=== PATIENT | female | born 1935 | race Caucasian/White ===

== ENCOUNTER 2017-01-03 14:15 | Inpatient (IN) | payer MEDICARE ==
[2017-01-03 14:39] LABS: BASO # 0.1 K/uL (0.0-0.2); BASO % 0.7 % (0.0-2.0); EOS # 0.1 K/uL (0.0-0.7); EOS % 0.6 % (0.0-4.0); HEMATOCRIT 42.8 % (34.0-47.0); LYMPH % 17.3 % (20.0-40.0); MEAN CELL VOLUME 92.2 fL (81.0-99.0); MEAN CORPUSCULAR HEMOGLOBIN 30.4 pg (27.0-31.0); MEAN PLATELET VOLUME 10.4 fL (7.2-11.7); MONO # 0.6 K/uL (0.0-0.8); MONO % 5.1 % (0.0-10.0); RED CELL DISTRIBUTION WIDTH 12.9 % (11.5-14.5); WHITE BLOOD COUNT 11.4 K/uL (4.8-10.8)
[2017-01-03 14:48] LABS: ABG ALLEN TEST UNABLE; ABG MECHANICAL RATE 16; ARTERIAL BLOOD GAS MODE A/C; ATERIAL BLOOD GAS PEEP 5; DRAW SITE LR
--- NOTE | 2017-01-03 14:58 | C.PDOC ---
History Of Present Illness 81 year old female was brought to the ED by EMS from retirement for evaluation of increased shortness of breath and respiratory arrest. History per EMS, patient with a history of Dementia was brought in needing immediate evaluation. Patient was found to have a Pulse Ox. of 56% on room air and intubated in the field. Initial evaluation performed by me. As per nurse's chart , patient is DNR but not DNI. Time Seen by Provider: 01/03/17 14:23 Chief Complaint (Nursing): Respiratory Distress History Per: EMS History/Exam Limitations: clinical condition Current Symptoms Are (Timing): Still Present Recent travel outside of the [place]: No Additional History Per: [facility] Past Medical History Reviewed: Historical Data, Nursing Documentation, Vital Signs Vital Signs: Last Vital Signs Temp 98.7 F 01/05/17 04:00 Pulse 82 01/05/17 07:00 Resp 16 01/05/17 07:00 BP 169/79 H 01/05/17 06:58 Pulse Ox 100 01/05/17 07:00 - Medical History PMH: Alzheimer's Disease, Arthritis, Asthma, COPD, Dementia, Gall Bladder Disease, HTN, Hypothyroidism, Pulmonary Embolism, Seizures (LAST EPISODE 2 MONTHS AGO) Surgical History: Cholecystectomy (15 yrs ago) - Revolucionadolabs Procedures PERCUTANEOUS [ENDOSCOPIC] GASTROSTOMY [PEG] (07/08/14) Family History: States: Unknown Family Hx - Social History Hx Tobacco Use: No Hx Alcohol Use: No Hx Substance Use: No - Immunization History Hx Tetanus Toxoid Vaccination: No Hx Influenza Vaccination: No Hx Pneumococcal Vaccination: No Review Of Systems Review Of Systems: ROS cannot be obtained secondary to pt's inabilty to answer questions. (patient's clinical condition) Physical Exam - Physical Exam Appears: Toxic, Other (In respiratory distress ) Skin: Warm, Dry, No Rash Head: Atraumatic, Normacephalic, No Tenderness Eye(s): bilateral: Normal Inspection Oral Mucosa: Moist Neck: Supple Chest: Symmetrical, No Deformity Cardiovascular: No Murmur, Other (sinus tachycardic ) Respiratory: No Rales, No Rhonchi, No Wheezing, Other (breath sounds bilaterally with bag-valve mask ) Gastrointestinal/Abdominal: Soft, No Distention, No Guarding, Other (G tube present ) Neurological/Psych: Other (patient is moving all four extremities ) ED Course And Treatment - Laboratory Results Result Diagrams: 01/05/17 06:15 01/05/17 06:15 ECG: Interpreted By Me, Viewed By Me ECG Rhythm: Sinus Tachycardia Interpretation Of ECG: Poor r-wave progression. Normal axis, normal intervals. Non-specific t-wave changes. Rate From EC O2 Sat by Pulse Oximetry: 99 (RA) Pulse Ox Interpretation: Normal - Other Rad CXR X-Ray: Viewed By Me, Read By Radiologist Interpretation: FINDINGS: The endotracheal tube terminates approximately 11 mm above the level the brien. LUNGS: Patchy opacity at the left lung base, possibly atelectasis or pneumonia. Right hilar prominence. Biapical pleural thickening. PLEURA: No significant pleural effusion identified. No definite pneumothorax . CARDIOVASCULAR: Heart size appears top normal. Atherosclerotic calcifications of the aortic knob. OSSEOUS STRUCTURES: Degenerative changes of the spine. VISUALIZED UPPER ABDOMEN: Unremarkable. OTHER FINDINGS: None. IMPRESSION: The endotracheal tube terminates approximately 11 mm above the level the brien. Suggest withdrawing endotracheal tube approximately 2 cm. Patchy opacity at the left lung base, possibly atelectasis or pneumonia. Right hilar prominence. Biapical pleural thickening. Findings discussed with Dr. Lowery on 01/03/17 at 3:50 p.m.. Progress Note: Head CT, EKG, CXR, blood work, and labs were ordered. Patient was given Ativan. - Physician Consult Information Time Consulting Physician Contacted: 15:10 Physician Contacted: Stephane Ferrer Critical Care Time - Critical Care Note Total Time (in mins): 60 Documented critical care: time excludes all time spent performing seperately billable procedures. Medical Decision Making Medical Decision Making: DNR is not signed therefore is not valid. 15:20 case discussed with patient's PMD Dr. Drake who agrees to admission to his service. 16:10 Radiology notified me, patient's intubation tube was too far down. ETT tube pulled back 2 cm. Disposition Discussed With : Jolene Drake Doctor Will See Patient In The: Hospital - Disposition Disposition: HOSPITALIZED Disposition Time: 15:40 Condition: CRITICAL - Clinical Impression Clinical Impression: Respiratory arrest - Scribe Statement The provider has reviewed the documentation as recorded by the Scribe Rosaline Izaguirre All medical record entries made by the Scribe were at my direction and personally dictated by me. I have reviewed the chart and agree that the record accurately reflects my personal performance of the history, physical exam, medical decision making, and the department course for this patient. I have also personally directed, reviewed, and agree with the discharge instructions and disposition.
[2017-01-03 15:20] LABS: RBC URINE 5 /hpf (0-3); URINE BACTERIA RARE (<OCC); URINE BILIRUBIN NEGATIVE (NEGATIVE); URINE BLOOD NEGATIVE (NEGATIVE); URINE COLOR Yellow (YELLOW); URINE GLUCOSE (UA) 1+ mg/dL (Normal); URINE KETONE NEGATIVE (NEGATIVE); URINE LEUKOCYTE ESTERASE NEG Leu/uL (Negative); URINE PROTEIN 2+ mg/dL (NEGATIVE); URINE UROBILINOGEN NORMAL mg/dL (0.2-1.0); WBC URINE 7 /hpf (0-5)
[2017-01-03 15:46] LABS: THYROID STIMULATING HORMONE 7.03 mIU/L (0.46-4.68)
[2017-01-03] MEDS ORDERED: Cefepime 1 GM in Sodium Chloride 0.9% 50 ML IVPB ONE (15:50)
--- NOTE | 2017-01-03 15:53 | RAD ---
HISTORY: SOB COMPARISON: Chest x-ray performed 01/11/14 TECHNIQUE: Chest, one view. FINDINGS: The endotracheal tube terminates approximately 11 mm above the level the brien. LUNGS: Patchy opacity at the left lung base, possibly atelectasis or pneumonia. Right hilar prominence. Biapical pleural thickening. PLEURA: No significant pleural effusion identified. No definite pneumothorax . CARDIOVASCULAR: Heart size appears top normal. Atherosclerotic calcifications of the aortic knob. OSSEOUS STRUCTURES: Degenerative changes of the spine. VISUALIZED UPPER ABDOMEN: Unremarkable. OTHER FINDINGS: None. IMPRESSION: The endotracheal tube terminates approximately 11 mm above the level the brien. Suggest withdrawing endotracheal tube approximately 2 cm. Patchy opacity at the left lung base, possibly atelectasis or pneumonia. Right hilar prominence. Biapical pleural thickening. Findings discussed with Dr. Lowery on 01/03/17 at 3:50 p.m..
[2017-01-03 16:13] LABS: ALKALINE PHOSPHATASE 73 U/L (38-126); ALT/SGPT 33 U/L (9-52); AST/SGOT 38 U/L (14-36); BILIRUBIN,TOTAL 0.7 mg/dL (0.2-1.3); BLOOD UREA NITROGEN 22 mg/dL (7-17); CALCIUM 8.3 mg/dl (8.6-10.4); CARBON DIOXIDE 27 mmol/L (22-30); CHLORIDE 100 mmol/L (98-107); GFR AFRICAN-AMERICAN > 60; GLUCOSE,RANDOM 113 mg/dL (65-105); SODIUM 137 mmol/L (132-148); TOTAL PROTEIN 7.3 g/dL (6.3-8.3)
[2017-01-03] MEDS ORDERED: Cefepime IV 1 gm in Dextrose 1 GM/50 ML BAG IVPB ONE (16:15)
--- NOTE | 2017-01-03 16:39 | CP.PCM.CON ---
<Charlotte Lyon - Last Filed: 01/03/17 17:49> History of Present Illness - History of Present Illness History of Present Illness: Patient is an 81 year old female with PMHx of Alzheimer's Dementia, HTN, stroke , hypothyroidism, and possible seizures who was at her detention when she started to choke. Patient was suctioned, but became hypoxic and brought to ED. Patient intubated. Son is at bedside who provides the history. At baseline, patient is nonverbal and wheelchair bound. Patient cannot follow commands. Patient has been living in a detention for the past 8 years and son believes she has been having more trouble with breathing recently. PMHx: Alzheimer's Dementia, HTN, stroke (unknown year because found incidentally as an old infarct on imaging in 2011), hypothyroidism, possible seizure history Surghx: cholecystectomy (2001), peg tube (2013) Social: 8 years ago moved into a detention, currently at [place] ([phone]), no history of tobacco/alcohol/drugs Famhx: mom- throat CA, sister- stomach CA Review of Systems - Review of Systems Systems not reviewed;Unavailable: Intubated Past Patient History - Past Medical History & Family History Past Medical History?: Yes - Past Social History Smoking Status: Never Smoked - CARDIAC Hx Hypertension: Yes - PULMONARY Hx Asthma: Yes Hx Chronic Obstructive Pulmonary Disease (COPD): Yes Hx Pulmonary Embolism: Yes - NEUROLOGICAL Hx Alzheimer's Disease: Yes Hx Dementia: Yes Hx Seizures: Yes (LAST EPISODE 2 MONTHS AGO) - HEENT Hx HEENT Problems: Yes Hx Cataracts: Yes Hx Glaucoma: Yes - RENAL Hx Chronic Kidney Disease: No - ENDOCRINE/METABOLIC Hx Hypothyroidism: Yes - HEMATOLOGICAL/ONCOLOGICAL Hx Blood Disorders: No - INTEGUMENTARY Hx Dermatological Problems: No - MUSCULOSKELETAL/RHEUMATOLOGICAL Hx Arthritis: Yes - GASTROINTESTINAL Hx Gall Bladder Disease: Yes - GENITOURINARY/GYNECOLOGICAL Hx Genitourinary Disorders: Yes Hx Incontinence: Yes - PSYCHIATRIC Hx Substance Use: No - SURGICAL HISTORY Hx Cholecystectomy: Yes (15 yrs ago) - ANESTHESIA Hx Anesthesia: Yes Hx Anesthesia Reactions: No Hx Malignant Hyperthermia: No Meds Allergies/Adverse Reactions: Allergies Allergy/AdvReac Type Severity Reaction Status Date / Time No Known Allergies Allergy Verified 01/03/17 14:38 - Medications Medications: Current Medications Cefepime HCl (Maxipime Iv 1 Gm Premix) 1 gm in 50 mls @ 100 mls/hr IVPB ONCE ONE Stop: 01/03/17 16:44 Physical Exam - Constitutional Appears: Older Than Stated Age, Chronically Ill - Head Exam Head Exam: ATRAUMATIC, NORMAL INSPECTION Additional comments: flaking scalp - Respiratory Exam Respiratory Exam: Decreased Breath Sounds, Rhonchi Additional comments: intubated - Cardiovascular Exam Cardiovascular Exam: Tachycardia, +S1, +S2 - GI/Abdominal Exam GI & Abdominal Exam: Soft Additional comments: PEG tube in place with C/D/I dressing - Extremities Exam Extremities exam: Positive for: normal inspection. Negative for: pedal edema - Neurological Exam Neurological exam: Altered - Skin Skin Exam: Intact, Normal Color, Warm Results - Vital Signs Recent Vital Signs: Last Vital Signs Temp 98.3 F 01/03/17 14:27 Pulse 94 H 01/03/17 15:15 Resp 20 01/03/17 15:15 BP 110/80 01/03/17 15:15 Pulse Ox 99 01/03/17 15:56 - Labs Result Diagrams: 01/03/17 14:34 01/03/17 14:34 Labs: Laboratory Results - last 24 hr 01/03/17 01/03/17 01/03/17 14:34 14:34 14:34 WBC 11.4 H RBC 4.65 Hgb 14.1 Hct 42.8 MCV 92.2 MCH 30.4 MCHC 33.0 RDW 12.9 Plt Count 238 MPV 10.4 Neut % (Auto) 76.3 H Lymph % (Auto) 17.3 L [place] % (Auto) 5.1 Eos % (Auto) 0.6 Baso % (Auto) 0.7 Neut # 8.7 H Lymph # 2.0 [place] # 0.6 Eos # 0.1 Baso # 0.1 PT 11.6 INR 1.0 APTT 24 Puncture Site pCO2 pO2 HCO3 ABG pH ABG Total CO2 ABG O2 Saturation ABG Base Excess [place] Test ABG Potassium A-a O2 Difference Respiratory Index Glucose Lactate Vent Mode Mechanical Rate FiO2 Tidal Volume PEEP Sodium 137 Potassium 4.0 Chloride 100 Carbon Dioxide 27 Anion Gap 14 BUN 22 H Creatinine 0.5 L Est GFR ( Amer) > 60 Est GFR (Non-Af Amer) > 60 Random Glucose 113 H Calcium 8.3 L Magnesium 2.0 Total Bilirubin 0.7 AST 38 H ALT 33 Alkaline Phosphatase 73 Troponin I < 0.0120 NT-Pro-B Natriuret Pep 350 Total Protein 7.3 Albumin 3.6 Globulin 3.7 Albumin/Globulin Ratio 1.0 TSH 3rd Generation 7.03 H Arterial Blood Potassium Urine Color Urine Clarity Urine pH Ur Specific [place] Urine Protein Urine Glucose (UA) Urine Ketones Urine Blood Urine Nitrate Urine Bilirubin Urine Urobilinogen Ur Leukocyte Esterase Urine WBC (Auto) Urine RBC (Auto) Ur Squamous Epith Cells Urine Bacteria 01/03/17 01/03/17 14:45 14:58 WBC RBC Hgb Hct MCV MCH MCHC RDW Plt Count MPV Neut % (Auto) Lymph % (Auto) [place] % (Auto) Eos % (Auto) Baso % (Auto) Neut # Lymph # [place] # Eos # Baso # PT INR APTT Puncture Site Lr pCO2 39 pO2 427 H HCO3 27.3 ABG pH 7.45 ABG Total CO2 28.3 H ABG O2 Saturation 100.1 H ABG Base Excess 3.0 [place] Test Unable ABG Potassium 3.5 L A-a O2 Difference 237.0 Respiratory Index 0.6 Glucose 121 H Lactate 2.5 H Vent Mode A/c Mechanical Rate 16 FiO2 100.0 Tidal Volume 450 PEEP 5 Sodium 138.0 Potassium Chloride 112.0 H Carbon Dioxide Anion Gap BUN Creatinine Est GFR ( Amer) Est GFR (Non-Af Amer) Random Glucose Calcium Magnesium Total Bilirubin AST ALT Alkaline Phosphatase Troponin I NT-Pro-B Natriuret Pep Total Protein Albumin Globulin Albumin/Globulin Ratio TSH 3rd Generation Arterial Blood Potassium 3.5 L Urine Color Yellow Urine Clarity Hazy Urine pH 5.0 Ur Specific [place] 1.020 Urine Protein 2+ H Urine Glucose (UA) 1+ Urine Ketones Negative Urine Blood Negative Urine Nitrate Negative Urine Bilirubin Negative Urine Urobilinogen Normal Ur Leukocyte Esterase Neg Urine WBC (Auto) 7 H Urine RBC (Auto) 5 H Ur Squamous Epith Cells 1 Urine Bacteria Rare Assessment & Plan - Assessment and Plan (Free Text) Assessment: Patient is an 81 year old female with PMHx of Alzheimer's Dementia, HTN, stroke , hypothyroidism admitted for respiratory failure, intubated, after an episode of choking in the detention. Neuro: hx Alzheimer's Dementia, possible seizure hx -nonverbal and does not follow commands at baseline -continue home medication Keppra 500 mg po BID Pulm: intubated, secondary to respiratory failure, possibly 2/2 aspiration pneumonia cxray (01/03): patchy opacity at the left lung base, possibly atelectasis or pneumonia. Right hilar prominence. Biapical pleural thickening. Cardio: hx HTN -monitor BP GI: peg tube -start feedings tomorrow Endo: hx hypothyroidism -continue home med: Synthroid 100mcg daily -TSH: 7.03 -f/u free T4 ID: -WBC: 11.4 -Lactate (01/03): 2.5 -Cefepime 1 gm given in ED -Cefepime 1gm q12h -Flagyl 500 q8h -1 dose Vanco 1,000 mg -f/u blood, urine cultures Prophylaxis: -GI: Pepcid 20 mg ivp daily -DVT: SCDs, Heparin 5000 u sc q12h -palliative care consulted, help appreciated <Stephane Ferrer - Last Filed: 01/03/17 18:05> Meds - Medications Medications: Current Medications Famotidine (Pepcid) 20 mg IVP DAILY [facility] Heparin Sodium (Porcine) (Heparin) 5,000 units SC Q12 [facility] Vancomycin/Sodium Chloride (Vancomycin 1 Gm/Ns 200 Ml) 1 gm in 200 mls @ 133.333 mls/hr IVPB ONCE ONE Stop: 01/03/17 19:59 Last Admin: 01/03/17 17:51 Dose: 133.333 mls/hr Metronidazole (Flagyl) 500 mg in 100 mls @ 100 mls/hr IVPB Q8H [facility] Last Admin: 01/03/17 17:46 Dose: 100 mls/hr Cefepime HCl (Maxipime Iv 1 Gm Premix) 1 gm in 50 mls @ 100 mls/hr IVPB Q12H [facility] Levetiracetam (Keppra) 500 mg PO BID [facility] Levothyroxine Sodium (Synthroid) 100 mcg PO DAILY@0630 [facility] Results - Vital Signs Recent Vital Signs: Last Vital Signs Temp 98.7 F 01/03/17 17:25 Pulse 102 H 01/03/17 17:50 Resp 16 01/03/17 17:50 BP 120/79 01/03/17 17:41 Pulse Ox 95 01/03/17 17:50 - Labs Result Diagrams: 01/03/17 14:34 01/03/17 14:34 Labs: Laboratory Results - last 24 hr 01/03/17 01/03/17 01/03/17 14:34 14:34 14:34 WBC 11.4 H RBC 4.65 Hgb 14.1 Hct 42.8 MCV 92.2 MCH 30.4 MCHC 33.0 RDW 12.9 Plt Count 238 MPV 10.4 Neut % (Auto) 76.3 H Lymph % (Auto) 17.3 L [place] % (Auto) 5.1 Eos % (Auto) 0.6 Baso % (Auto) 0.7 Neut # 8.7 H Lymph # 2.0 [place] # 0.6 Eos # 0.1 Baso # 0.1 PT 11.6 INR 1.0 APTT 24 Puncture Site pCO2 pO2 HCO3 ABG pH ABG Total CO2 ABG O2 Saturation ABG Base Excess [place] Test ABG Potassium A-a O2 Difference Respiratory Index Glucose Lactate Vent Mode Mechanical Rate FiO2 Tidal Volume PEEP Sodium 137 Potassium 4.0 Chloride 100 Carbon Dioxide 27 Anion Gap 14 BUN 22 H Creatinine 0.5 L Est GFR ( Amer) > 60 Est GFR (Non-Af Amer) > 60 Random Glucose 113 H Calcium 8.3 L Magnesium 2.0 Total Bilirubin 0.7 AST 38 H ALT 33 Alkaline Phosphatase 73 Troponin I < 0.0120 NT-Pro-B Natriuret Pep 350 Total Protein 7.3 Albumin 3.6 Globulin 3.7 Albumin/Globulin Ratio 1.0 TSH 3rd Generation 7.03 H Arterial Blood Potassium Urine Color Urine Clarity Urine pH Ur Specific [place] Urine Protein Urine Glucose (UA) Urine Ketones Urine Blood Urine Nitrate Urine Bilirubin Urine Urobilinogen Ur Leukocyte Esterase Urine WBC (Auto) Urine RBC (Auto) Ur Squamous Epith Cells Urine Bacteria 01/03/17 01/03/17 14:45 14:58 WBC RBC Hgb Hct MCV MCH MCHC RDW Plt Count MPV Neut % (Auto) Lymph % (Auto) [place] % (Auto) Eos % (Auto) Baso % (Auto) Neut # Lymph # [place] # Eos # Baso # PT INR APTT Puncture Site Lr pCO2 39 pO2 427 H HCO3 27.3 ABG pH 7.45 ABG Total CO2 28.3 H ABG O2 Saturation 100.1 H ABG Base Excess 3.0 [place] Test Unable ABG Potassium 3.5 L A-a O2 Difference 237.0 Respiratory Index 0.6 Glucose 121 H Lactate 2.5 H Vent Mode A/c Mechanical Rate 16 FiO2 100.0 Tidal Volume 450 PEEP 5 Sodium 138.0 Potassium Chloride 112.0 H Carbon Dioxide Anion Gap BUN Creatinine Est GFR ( Amer) Est GFR (Non-Af Amer) Random Glucose Calcium Magnesium Total Bilirubin AST ALT Alkaline Phosphatase Troponin I NT-Pro-B Natriuret Pep Total Protein Albumin Globulin Albumin/Globulin Ratio TSH 3rd Generation Arterial Blood Potassium 3.5 L Urine Color Yellow Urine Clarity Hazy Urine pH 5.0 Ur Specific [place] 1.020 Urine Protein 2+ H Urine Glucose (UA) 1+ Urine Ketones Negative Urine Blood Negative Urine Nitrate Negative Urine Bilirubin Negative Urine Urobilinogen Normal Ur Leukocyte Esterase Neg Urine WBC (Auto) 7 H Urine RBC (Auto) 5 H Ur Squamous Epith Cells 1 Urine Bacteria Rare Attending/Attestation - Attestation I have personally seen and examined this patient.: Yes I have fully participated in the care of the patient.: Yes I have reviewed all pertinent clinical information: Yes Notes (Text): 01/03/17 18:04 Patient seen and examined. Case discussed with house staff. 81 year old female transferred from detention after she was intubated for respiratory distress/cyanosis Continue ventilatory support and reduce FiO2 40% Started on IV antibiotics for possible aspiration pneumonia Follow-up culture and sensitivity NGT feeding and continue Keppra case discussed with family
[2017-01-03] MEDS: metroNIDAZOLE IV 500 mg/100 ml 500 MG/100 ML BAG IVPB SCH (17:46)
[2017-01-03] MEDS ORDERED: Vancomycin 1 gm/NS 200 ml 1 GM/200 ML BAG IVPB ONE (18:30)
[2017-01-03] MEDS: levETIRAcetam 100 mg/ml (5ml) Oral Syringe PO SCH (20:12)
[2017-01-04] MEDS: metroNIDAZOLE IV 500 mg/100 ml 500 MG/100 ML BAG IVPB SCH ×3 (01:30→18:29)
--- NOTE | 2017-01-04 02:56 | HP ---
HISTORY OF PRESENT ILLNESS: This is an 81-year-old female who is a half-way resident for many years, was brought to Emergency Room for severe respiratory distress. The patient was intubated in the field and she was brought to Emergency Room where she was started on IV antibiotics as well as had an ICU consultation and admitted to Intensive Care Unit. The patient's chest x-ray showed patchy opacity of the left lung base, possible atelectasis or pneumonia. The patient was sedated at the time of this examination and her 2 sons were at the bedside and no more history was obtainable from the patient due to sedation. ALLERGIES: No KNOWN ALLERGY. PAST MEDICAL HISTORY: Seizure, hypothyroidism, status post CVA, dementia, gastric tube feeding. MEDICATIONS: As per MAR. FAMILY HISTORY: Not known. SOCIAL HISTORY: The patient is a half-way resident, otherwise not known. PHYSICAL EXAMINATION: GENERAL: The patient is sedated on ventilator. VITAL SIGNS: Blood pressure 107/70, temperature 98.4, respiratory rate 12 and pulse 90. HEENT: Pupils equal, reactive to light. Normal-appearing mucosa of the conjunctivae, oropharyngeal and nasal membrane mucosa. NECK: Supple. No JVD. No carotid bruit. No lymph node. No thyromegaly. CHEST AND LUNGS: Bilateral symmetrical expansion. Good air exchange. No rales, no rhonchi. CARDIOVASCULAR SYSTEM: PMI not localized. S1 and S2. No additional sounds. ABDOMEN: Normoactive bowel sounds. No tenderness. No organomegaly. No masses. Right gastric tube is in place. EXTREMITIES: No cyanosis, no clubbing, no edema. CENTRAL NERVOUS SYSTEM: The patient is sedated on ventilator. ASSESSMENT: Respiratory failure, possible pneumonia; hypothyroidism; seizure disorder; gastric tube feeding. PLAN: Continue IV antibiotics that was started by brake lining [employer]isher [employer]. Pulmonary consultation. ICU management and wean off ventilator as tolerated. Currently, the patient is full code. Discussed with the patient's sons at the bedside. Davon MD [place]
[2017-01-04] MEDS: Cefepime IV 1 gm in Dextrose 1 GM/50 ML BAG IVPB SCH ×2 (05:02→17:49)
[2017-01-04 05:31] LABS: ABG ALLEN TEST POS; ABG MECHANICAL RATE 16; ARTERIAL BLOOD GAS MODE PRVC; ATERIAL BLOOD GAS PEEP 5; DRAW SITE RR
[2017-01-04] MEDS: Levothyroxine 100 MCG TAB PO SCH (05:47)
[2017-01-04 06:26] LABS: BASO # 0.1 K/uL (0.0-0.2); BASO % 0.6 % (0.0-2.0); EOS % 0.3 % (0.0-4.0); HEMATOCRIT 41.9 % (34.0-47.0); LYMPH # 2.5 K/uL (1.0-4.3); LYMPH % 27.6 % (20.0-40.0); MEAN CELL VOLUME 90.8 fL (81.0-99.0); MEAN CORPUSCULAR HGB CONC 34.1 g/dL (33.0-37.0); MEAN PLATELET VOLUME 11.3 fL (7.2-11.7); MONO # 0.5 K/uL (0.0-0.8); MONO % 5.5 % (0.0-10.0); RED CELL DISTRIBUTION WIDTH 13.1 % (11.5-14.5); WHITE BLOOD COUNT 9.2 K/uL (4.8-10.8)
[2017-01-04 06:40] LABS: ALB/GLOB RATIO 0.8 (1.0-2.1); ALKALINE PHOSPHATASE 79 U/L (38-126); ALT/SGPT 34 U/L (9-52); AST/SGOT 33 U/L (14-36); BILIRUBIN,TOTAL 0.9 mg/dL (0.2-1.3); BLOOD UREA NITROGEN 15 mg/dL (7-17); CALCIUM 8.7 mg/dl (8.6-10.4); CARBON DIOXIDE 27 mmol/L (22-30); CHLORIDE 100 mmol/L (98-107); GFR AFRICAN-AMERICAN > 60; GLUCOSE,RANDOM 95 mg/dL (65-105); PHOSPHOROUS 1.3 mg/dL (2.5-4.5); POTASSIUM 3.1 mmol/L (3.6-5.2); SODIUM 138 mmol/L (132-148)
[2017-01-04] MEDS ORDERED: Potassium Phosphate 15 MMOLE in Dextrose 5% In Water 250 ML IVPB ONE ×2 (07:06→15:00)
--- NOTE | 2017-01-04 08:54 | RAD ---
HISTORY: intubated COMPARISON: 01/03/2017 FINDINGS: LUNGS: No active pulmonary disease. PLEURA: No significant pleural effusion identified, no pneumothorax apparent. CARDIOVASCULAR: Endotracheal tube positioned approximately 3.2 cm above the tracheal brien. OSSEOUS STRUCTURES: No significant abnormalities. VISUALIZED UPPER ABDOMEN: Normal. OTHER FINDINGS: None. IMPRESSION: No infiltrate. Endotracheal tube appropriately positioned.
[2017-01-04] MEDS: levETIRAcetam 100 mg/ml (5ml) Oral Syringe PO SCH ×2 (10:35→18:14)
--- NOTE | 2017-01-04 14:02 | CP.PCM.CON ---
History of Present Illness - History of Present Illness History of Present Illness: Palliative consult requested by Camron PEREIRA for Code status and goals of care discussion Patient is a 81 yo [place] in respiratory distress and was intubated on the field. The O2Sat wasfound to be in 50s on the scene. Upon admission to the hospital patient was diagnosed with pneumonia and Tygacil and Maxipine IV initiated. PMH: Alzheimer's, dementia, COPD, asthma, HTN, PE, seizures, last was 2 months ago Soc. Hx: , [place] resident X 8 years , bedridden, has three sons involved in care FamHx: from respiratory failure Review of Systems - Review of Systems Review of Systems: ROS obtained from nursing, no overnight events, remained afebrile Past Patient History - Past Medical History & Family History Past Medical History?: Yes - Past Social History Smoking Status: Never Smoked - CARDIAC Hx Hypertension: Yes - PULMONARY Hx Asthma: Yes Hx Chronic Obstructive Pulmonary Disease (COPD): Yes Hx Pulmonary Embolism: Yes - NEUROLOGICAL Hx Alzheimer's Disease: Yes Hx Dementia: Yes Hx Seizures: Yes (LAST EPISODE 2 MONTHS AGO) - HEENT Hx HEENT Problems: Yes Hx Cataracts: Yes Hx Glaucoma: Yes - RENAL Hx Chronic Kidney Disease: No - ENDOCRINE/METABOLIC Hx Hypothyroidism: Yes - HEMATOLOGICAL/ONCOLOGICAL Hx Blood Disorders: No - INTEGUMENTARY Hx Dermatological Problems: No - MUSCULOSKELETAL/RHEUMATOLOGICAL Hx Arthritis: Yes - GASTROINTESTINAL Hx Gall Bladder Disease: Yes - GENITOURINARY/GYNECOLOGICAL Hx Genitourinary Disorders: Yes Hx Incontinence: Yes - PSYCHIATRIC Hx Substance Use: No - SURGICAL HISTORY Hx Cholecystectomy: Yes (15 yrs ago) - ANESTHESIA Hx Anesthesia: Yes Hx Anesthesia Reactions: No Hx Malignant Hyperthermia: No Meds Allergies/Adverse Reactions: Allergies Allergy/AdvReac Type Severity Reaction Status Date / Time No Known Allergies Allergy Verified 01/03/17 14:38 - Medications Medications: Current Medications Famotidine (Pepcid) 20 mg IVP DAILY [facility] Last Admin: 01/04/17 10:35 Dose: 20 mg Heparin Sodium (Porcine) (Heparin) 5,000 units SC Q12 ODETTE Last Admin: 01/04/17 10:35 Dose: 5,000 units Metronidazole (Flagyl) 500 mg in 100 mls @ 100 mls/hr IVPB Q8H [facility] Last Admin: 11/15/17 10:35 Dose: 100 mls/hr Cefepime HCl (Maxipime Iv 1 Gm Premix) 1 gm in 50 mls @ 100 mls/hr IVPB Q12H [facility] Last Admin: 01/04/17 05:02 Dose: 100 mls/hr Levetiracetam (Keppra) 500 mg PO BID [facility] Last Admin: 01/04/17 10:35 Dose: 500 mg Levothyroxine Sodium (Synthroid) 100 mcg PO DAILY@0630 [facility] Last Admin: 01/04/17 05:47 Dose: 100 mcg Physical Exam - Constitutional Appears: In Acute Distress, Chronically Ill - Head Exam Head Exam: ATRAUMATIC, NORMAL INSPECTION, NORMOCEPHALIC - Eye Exam Eye Exam: PERRL Pupil Exam: NORMAL ACCOMODATION, PERRL - ENT Exam ENT Exam: Mucous Membranes Dry - Neck Exam Additional comments: ETT - Respiratory Exam Additional comments: On MV - Cardiovascular Exam Cardiovascular Exam: REGULAR RHYTHM - GI/Abdominal Exam GI & Abdominal Exam: Hypoactive Bowel Sounds Additional comments: PEG - Rectal Exam Rectal Exam: Deferred - Extremities Exam Extremities exam: Positive for: normal inspection - Back Exam Back exam: NORMAL INSPECTION - Neurological Exam Neurological exam: Motor Sensory Deficit - Psychiatric Exam Psychiatric exam: Flat Affect - Skin Skin Exam: Normal Color, Warm Results - Vital Signs Recent Vital Signs: Last Vital Signs Temp 97.8 F 01/04/17 08:00 Pulse 82 01/04/17 10:47 Resp 16 01/04/17 10:47 BP 106/75 01/04/17 10:47 Pulse Ox 100 01/04/17 10:47 - Labs Result Diagrams: 01/04/17 06:08 01/04/17 06:08 Labs: Laboratory Results - last 24 hr 01/03/17 01/03/17 01/03/17 14:34 14:34 14:34 WBC 11.4 H RBC 4.65 Hgb 14.1 Hct 42.8 MCV 92.2 MCH 30.4 MCHC 33.0 RDW 12.9 Plt Count 238 MPV 10.4 Neut % (Auto) 76.3 H Lymph % (Auto) 17.3 L [place] % (Auto) 5.1 Eos % (Auto) 0.6 Baso % (Auto) 0.7 Neut # 8.7 H Lymph # 2.0 [place] # 0.6 Eos # 0.1 Baso # 0.1 PT 11.6 INR 1.0 APTT 24 Puncture Site pCO2 pO2 HCO3 ABG pH ABG Total CO2 ABG O2 Saturation ABG Base Excess [place] Test ABG Potassium A-a O2 Difference Respiratory Index Glucose Lactate Vent Mode Mechanical Rate FiO2 Tidal Volume PEEP Sodium 137 Potassium 4.0 Chloride 100 Carbon Dioxide 27 Anion Gap 14 BUN 22 H Creatinine 0.5 L Est GFR ( Amer) > 60 Est GFR (Non-Af Amer) > 60 Random Glucose 113 H Calcium 8.3 L Phosphorus Magnesium 2.0 Total Bilirubin 0.7 AST 38 H ALT 33 Alkaline Phosphatase 73 Troponin I < 0.0120 NT-Pro-B Natriuret Pep 350 Total Protein 7.3 Albumin 3.6 Globulin 3.7 Albumin/Globulin Ratio 1.0 Free T4 TSH 3rd Generation 7.03 H Arterial Blood Potassium Urine Color Urine Clarity Urine pH Ur Specific [place] Urine Protein Urine Glucose (UA) Urine Ketones Urine Blood Urine Nitrate Urine Bilirubin Urine Urobilinogen Ur Leukocyte Esterase Urine WBC (Auto) Urine RBC (Auto) Ur Squamous Epith Cells Urine Bacteria 01/03/17 01/03/17 01/04/17 14:45 14:58 05:02 WBC RBC Hgb Hct MCV MCH MCHC RDW Plt Count MPV Neut % (Auto) Lymph % (Auto) [place] % (Auto) Eos % (Auto) Baso % (Auto) Neut # Lymph # [place] # Eos # Baso # PT INR APTT Puncture Site Lr Rr pCO2 39 26 L pO2 427 H 187 H HCO3 27.3 28.3 H ABG pH 7.45 7.59 H ABG Total CO2 28.3 H 25.7 ABG O2 Saturation 100.1 H 99.6 H ABG Base Excess 3.0 4.3 H Tyler Test Unable Pos ABG Potassium 3.5 L 3.2 L A-a O2 Difference 237.0 137.0 Respiratory Index 0.6 0.7 Glucose 121 H 101 Lactate 2.5 H 2.2 H Vent Mode A/c Prvc Mechanical Rate 16 16 FiO2 100.0 50.0 Tidal Volume 450 450 PEEP 5 5 Sodium 138.0 138.0 Potassium Chloride 112.0 H 106.0 Carbon Dioxide Anion Gap BUN Creatinine Est GFR ( Amer) Est GFR (Non-Af Amer) Random Glucose Calcium Phosphorus Magnesium Total Bilirubin AST ALT Alkaline Phosphatase Troponin I NT-Pro-B Natriuret Pep Total Protein Albumin Globulin Albumin/Globulin Ratio Free T4 TSH 3rd Generation Arterial Blood Potassium 3.5 L 3.2 L Urine Color Yellow Urine Clarity Hazy Urine pH 5.0 Ur Specific [place] 1.020 Urine Protein 2+ H Urine Glucose (UA) 1+ Urine Ketones Negative Urine Blood Negative Urine Nitrate Negative Urine Bilirubin Negative Urine Urobilinogen Normal Ur Leukocyte Esterase Neg Urine WBC (Auto) 7 H Urine RBC (Auto) 5 H Ur Squamous Epith Cells 1 Urine Bacteria Rare 01/04/17 01/04/17 01/04/17 06:08 06:08 06:08 WBC 9.2 RBC 4.62 Hgb 14.3 Hct 41.9 MCV 90.8 MCH 31.0 MCHC 34.1 RDW 13.1 Plt Count 228 MPV 11.3 Neut % (Auto) 66.0 Lymph % (Auto) 27.6 [place] % (Auto) 5.5 Eos % (Auto) 0.3 Baso % (Auto) 0.6 Neut # 6.0 Lymph # 2.5 [place] # 0.5 Eos # 0.0 Baso # 0.1 PT INR APTT Puncture Site pCO2 pO2 HCO3 ABG pH ABG Total CO2 ABG O2 Saturation ABG Base Excess [place] Test ABG Potassium A-a O2 Difference Respiratory Index Glucose Lactate Vent Mode Mechanical Rate FiO2 Tidal Volume PEEP Sodium 138 Potassium 3.1 L Chloride 100 Carbon Dioxide 27 Anion Gap 15 BUN 15 Creatinine 0.6 L Est GFR ( Amer) > 60 Est GFR (Non-Af Amer) > 60 Random Glucose 95 Calcium 8.7 Phosphorus 1.3 L Magnesium 2.0 Total Bilirubin 0.9 AST 33 ALT 34 Alkaline Phosphatase 79 Troponin I NT-Pro-B Natriuret Pep Total Protein 8.0 Albumin 3.5 Globulin 4.5 H Albumin/Globulin Ratio 0.8 L Free T4 1.46 TSH 3rd Generation Arterial Blood Potassium Urine Color Urine Clarity Urine pH Ur Specific [place] Urine Protein Urine Glucose (UA) Urine Ketones Urine Blood Urine Nitrate Urine Bilirubin Urine Urobilinogen Ur Leukocyte Esterase Urine WBC (Auto) Urine RBC (Auto) Ur Squamous Epith Cells Urine Bacteria Assessment & Plan - Assessment and Plan (Free Text) Assessment: Palliative consult Code status DNR, POLST on chart but no completed, PPS 0% I reviewed medical records, all diagnostic studies, examined patient in the bed and discussed goals of care with her son Gurdeep, at bed side Patient is intubated on MV support, unresponsive to stimuli in no acute distress. Skin is dry and warm to touch, the fingers on both hands are clinched in fists and there is purposeless movements of LEs noted. Breath sounds diminished, abdomen flat, PEG in place. BP 11/76, afebrile. WBC 9.2, Hb 14.3. With patient;s son at bed side I reviewed patient's clinical presentation and elicited his understanding of patient's condition. Mr. Mackenzie stated being familiar with his mother's condition as she has been sick for the last 8 years and he had sen her slow decline. Gurdeep's father just a few years ago while on respiratory support and for him seeing his mother in same condition is bringing back those memories. Gurdeep states being used to his mother being sick for long years, but also finding a comfort in knowing that she " still breaths". Gurdeep has two more brothes and they feel the same way as per him. I reviewed all medical interventions being applied to support his mother's condition and elicited his expectations. Gurdeep hopes, his mother would recover to the condition where she was before. If she manages to tolerate the removal of MV support and should ever need it again, Gurdeep would like her to be intubated. He only did not want the CPR. I corrected his knowledge regarding the risks of being DNR but not DNI, as those interventions go hand in hand. Mr. Mackenzie remained firm in his decision. BROOKE signed calling for DNR only Impression * This is a chronically ill patient with acute respiratory distress * Patient's wishes for the end of life care are not known; her sons are advocating for her * Patient's sons have a recent experience of loosing their father on MV support due to cardiac arrest and are having difficult time deciding on goals of care * Gurdeep, whom I spoke to would want patient to be assisted with MV every time should she needed it, in case she gets off it at this time Suggestion * Continue MV support and management of pneumonia * Ultimate goal for this patient should be weaning of the MV support * Aspiration precautions * DNR, POL on chart I will continue to fallow up with this patient and family and support at decision making process
--- NOTE | 2017-01-04 14:16 | CP.CCUPN ---
<Charlotte Lyon - Last Filed: 01/04/17 14:08> CCU Subjective - Physician Review Subjective (Free Text): Patient seen and examined at bedside. Patient intubated. Patient nonverbal at baseline. ROS unobtainable. CCU Objective - Vital Signs / Intake & Output Vital Signs (Last 4 hours): Vital Signs Pulse Resp BP Pulse Ox 01/04/17 10:47 82 16 106/75 100 Intake and Output (Last 8hrs): Intake & Output 01/03/17 01/04/17 01/04/17 22:59 06:59 14:59 Intake Total 420 200 246 Output Total 225 260 210 Balance 195 -60 36 Weight 123 lb 12.8 oz 125 lb 14.4 oz Intake: Intake, IV Amount 400 226 Left Distal Port Forearm 100 Left Forearm 400 126 Tube Feeding 0 140 20 Other 20 60 Output: Urine 225 260 210 Urethral (Hutchins) 225 260 210 Other: Voiding Method Indwelling Catheter # Bowel Movements 0 0 - Physical Exam Head: Positive for: Atraumatic, Normocephalic Extroacular Muscles: Positive for: EOMI Mouth: Positive for: Moist Mucous Membranes Respiratory/Chest: Positive for: Decreased Breath Sounds, Rhonchi Cardiovascular: Positive for: Normal S1, S2 Abdomen: Positive for: Other (PEG in place). Negative for: Tenderness Lower Extremity: Negative for: Edema Skin: Positive for: Warm, Normal Color Psychiatric: Negative for: Alert, Oriented x 3 - Medications Active Medications: Active Medications Generic Name Dose Route Start Last Admin Trade Name Freq PRN Reason Stop Dose Admin Famotidine 20 mg 01/04/17 10:00 01/04/17 10:35 Pepcid IVP 20 mg DAILY ODETTE Administration Heparin Sodium (Porcine) 5,000 units 01/03/17 22:00 01/04/17 10:35 Heparin SC 5,000 units Q12 ODETTE Administration Metronidazole 500 mg in 100 mls @ 100 mls/hr 01/03/17 18:00 01/04/17 10:35 Flagyl IVPB 100 mls/hr Q8H ODETTE Administration Cefepime HCl 1 gm in 50 mls @ 100 mls/hr 01/04/17 06:00 01/04/17 05:02 Maxipime Iv 1 Gm Premix IVPB 100 mls/hr Q12H ODETTE Administration Levetiracetam 500 mg 01/03/17 18:00 01/04/17 10:35 Keppra PO 500 mg BID ODETTE Administration Levothyroxine Sodium 100 mcg 01/04/17 06:30 01/04/17 05:47 Synthroid PO 100 mcg DAILY@0630 ODETTE Administration - Patient Studies Lab Studies: Lab Studies 01/04/17 01/04/17 01/04/17 Range/Units 06:08 06:08 06:08 WBC 9.2 (4.8-10.8) K/uL RBC 4.62 (3.80-5.20) Mil/uL Hgb 14.3 (11.0-16.0) g/dL Hct 41.9 (34.0-47.0) % MCV 90.8 (81.0-99.0) fL MCH 31.0 (27.0-31.0) pg MCHC 34.1 (33.0-37.0) g/dL RDW 13.1 (11.5-14.5) % Plt Count 228 (130-400) K/uL MPV 11.3 (7.2-11.7) fL Neut % (Auto) 66.0 (50.0-75.0) % Lymph % (Auto) 27.6 (20.0-40.0) % [place] % (Auto) 5.5 (0.0-10.0) % Eos % (Auto) 0.3 (0.0-4.0) % Baso % (Auto) 0.6 (0.0-2.0) % Neut # 6.0 (1.8-7.0) K/uL Lymph # 2.5 (1.0-4.3) K/uL [place] # 0.5 (0.0-0.8) K/uL Eos # 0.0 (0.0-0.7) K/uL Baso # 0.1 (0.0-0.2) K/uL PT (9.7-12.2) SECONDS INR APTT (21-34) SECONDS Puncture Site pCO2 (35-45) mm/Hg pO2 (80-100) mm/Hg HCO3 (21-28) mmol/L ABG pH (7.35-7.45) ABG Total CO2 (22-28) mmol/L ABG O2 Saturation (95-98) % ABG Base Excess (-2.0-3.0) mmol/L Tyler Test ABG Potassium (3.6-5.2) mmol/L A-a O2 Difference mm/Hg Respiratory Index Glucose (65-105) mg/dl Lactate (0.7-2.1) mmol/L Vent Mode Mechanical Rate FiO2 % Tidal Volume PEEP Sodium 138 (132-148) mmol/L Potassium 3.1 L (3.6-5.2) mmol/L Chloride 100 (98-107) mmol/L Carbon Dioxide 27 (22-30) mmol/L Anion Gap 15 (10-20) BUN 15 (7-17) mg/dL Creatinine 0.6 L (0.7-1.2) mg/dL Est GFR ( Amer) > 60 Est GFR (Non-Af Amer) > 60 Random Glucose 95 (65-105) mg/dL Calcium 8.7 (8.6-10.4) mg/dl Phosphorus 1.3 L (2.5-4.5) mg/dL Magnesium 2.0 (1.6-2.3) mg/dL Total Bilirubin 0.9 (0.2-1.3) mg/dL AST 33 (14-36) U/L ALT 34 (9-52) U/L Alkaline Phosphatase 79 (38-126) U/L Troponin I (0.00-0.120) ng/mL NT-Pro-B Natriuret Pep (0-900) pg/mL Total Protein 8.0 (6.3-8.3) g/dL Albumin 3.5 (3.5-5.0) g/dL Globulin 4.5 H (2.2-3.9) gm/dL Albumin/Globulin Ratio 0.8 L (1.0-2.1) Free T4 1.46 (0.78-2.19) ng/dL TSH 3rd Generation (0.46-4.68) mIU/L Arterial Blood Potassium (3.6-5.2) mmol/L Urine Color (YELLOW) Urine Clarity (Clear) Urine pH (5.0-8.0) Ur Specific [place] (1.003-1.030) Urine Protein (NEGATIVE) mg/dL Urine Glucose (UA) (Normal) mg/dL Urine Ketones (NEGATIVE) mg/dL Urine Blood (NEGATIVE) Urine Nitrate (NEGATIVE) Urine Bilirubin (NEGATIVE) Urine Urobilinogen (0.2-1.0) mg/dL Ur Leukocyte Esterase (Negative) Mamadou/uL Urine WBC (Auto) (0-5) /hpf Urine RBC (Auto) (0-3) /hpf Ur Squamous Epith Cells (0-5) /hpf Urine Bacteria (<OCC) 01/04/17 01/03/17 01/03/17 Range/Units 05:02 14:58 14:45 WBC (4.8-10.8) K/uL RBC (3.80-5.20) Mil/uL Hgb (11.0-16.0) g/dL Hct (34.0-47.0) % MCV (81.0-99.0) fL MCH (27.0-31.0) pg MCHC (33.0-37.0) g/dL RDW (11.5-14.5) % Plt Count (130-400) K/uL MPV (7.2-11.7) fL Neut % (Auto) (50.0-75.0) % Lymph % (Auto) (20.0-40.0) % [place] % (Auto) (0.0-10.0) % Eos % (Auto) (0.0-4.0) % Baso % (Auto) (0.0-2.0) % Neut # (1.8-7.0) K/uL Lymph # (1.0-4.3) K/uL [place] # (0.0-0.8) K/uL Eos # (0.0-0.7) K/uL Baso # (0.0-0.2) K/uL PT (9.7-12.2) SECONDS INR APTT (21-34) SECONDS Puncture Site Rr Lr pCO2 26 L 39 (35-45) mm/Hg pO2 187 H 427 H (80-100) mm/Hg HCO3 28.3 H 27.3 (21-28) mmol/L ABG pH 7.59 H 7.45 (7.35-7.45) ABG Total CO2 25.7 28.3 H (22-28) mmol/L ABG O2 Saturation 99.6 H 100.1 H (95-98) % ABG Base Excess 4.3 H 3.0 (-2.0-3.0) mmol/L Tyler Test Pos Unable ABG Potassium 3.2 L 3.5 L (3.6-5.2) mmol/L A-a O2 Difference 137.0 237.0 mm/Hg Respiratory Index 0.7 0.6 Glucose 101 121 H (65-105) mg/dl Lactate 2.2 H 2.5 H (0.7-2.1) mmol/L Vent Mode Prvc A/c Mechanical Rate 16 16 FiO2 50.0 100.0 % Tidal Volume 450 450 PEEP 5 5 Sodium 138.0 138.0 (132-148) mmol/L Potassium (3.6-5.2) mmol/L Chloride 106.0 112.0 H (98-107) mmol/L Carbon Dioxide (22-30) mmol/L Anion Gap (10-20) BUN (7-17) mg/dL Creatinine (0.7-1.2) mg/dL Est GFR ( Amer) Est GFR (Non-Af Amer) Random Glucose (65-105) mg/dL Calcium (8.6-10.4) mg/dl Phosphorus (2.5-4.5) mg/dL Magnesium (1.6-2.3) mg/dL Total Bilirubin (0.2-1.3) mg/dL AST (14-36) U/L ALT (9-52) U/L Alkaline Phosphatase (38-126) U/L Troponin I (0.00-0.120) ng/mL NT-Pro-B Natriuret Pep (0-900) pg/mL Total Protein (6.3-8.3) g/dL Albumin (3.5-5.0) g/dL Globulin (2.2-3.9) gm/dL Albumin/Globulin Ratio (1.0-2.1) Free T4 (0.78-2.19) ng/dL TSH 3rd Generation (0.46-4.68) mIU/L Arterial Blood Potassium 3.2 L 3.5 L (3.6-5.2) mmol/L Urine Color Yellow (YELLOW) Urine Clarity Hazy (Clear) Urine pH 5.0 (5.0-8.0) Ur Specific [place] 1.020 (1.003-1.030) Urine Protein 2+ H (NEGATIVE) mg/dL Urine Glucose (UA) 1+ (Normal) mg/dL Urine Ketones Negative (NEGATIVE) mg/dL Urine Blood Negative (NEGATIVE) Urine Nitrate Negative (NEGATIVE) Urine Bilirubin Negative (NEGATIVE) Urine Urobilinogen Normal (0.2-1.0) mg/dL Ur Leukocyte Esterase Neg (Negative) Mamadou/uL Urine WBC (Auto) 7 H (0-5) /hpf Urine RBC (Auto) 5 H (0-3) /hpf Ur Squamous Epith Cells 1 (0-5) /hpf Urine Bacteria Rare (<OCC) 01/03/17 01/03/17 01/03/17 Range/Units 14:34 14:34 14:34 WBC 11.4 H (4.8-10.8) K/uL RBC 4.65 (3.80-5.20) Mil/uL Hgb 14.1 (11.0-16.0) g/dL Hct 42.8 (34.0-47.0) % MCV 92.2 (81.0-99.0) fL MCH 30.4 (27.0-31.0) pg MCHC 33.0 (33.0-37.0) g/dL RDW 12.9 (11.5-14.5) % Plt Count 238 (130-400) K/uL MPV 10.4 (7.2-11.7) fL Neut % (Auto) 76.3 H (50.0-75.0) % Lymph % (Auto) 17.3 L (20.0-40.0) % [place] % (Auto) 5.1 (0.0-10.0) % Eos % (Auto) 0.6 (0.0-4.0) % Baso % (Auto) 0.7 (0.0-2.0) % Neut # 8.7 H (1.8-7.0) K/uL Lymph # 2.0 (1.0-4.3) K/uL [place] # 0.6 (0.0-0.8) K/uL Eos # 0.1 (0.0-0.7) K/uL Baso # 0.1 (0.0-0.2) K/uL PT 11.6 (9.7-12.2) SECONDS INR 1.0 APTT 24 (21-34) SECONDS Puncture Site pCO2 (35-45) mm/Hg pO2 (80-100) mm/Hg HCO3 (21-28) mmol/L ABG pH (7.35-7.45) ABG Total CO2 (22-28) mmol/L ABG O2 Saturation (95-98) % ABG Base Excess (-2.0-3.0) mmol/L Tyler Test ABG Potassium (3.6-5.2) mmol/L A-a O2 Difference mm/Hg Respiratory Index Glucose (65-105) mg/dl Lactate (0.7-2.1) mmol/L Vent Mode Mechanical Rate FiO2 % Tidal Volume PEEP Sodium 137 (132-148) mmol/L Potassium 4.0 (3.6-5.2) mmol/L Chloride 100 (98-107) mmol/L Carbon Dioxide 27 (22-30) mmol/L Anion Gap 14 (10-20) BUN 22 H (7-17) mg/dL Creatinine 0.5 L (0.7-1.2) mg/dL Est GFR ( Amer) > 60 Est GFR (Non-Af Amer) > 60 Random Glucose 113 H (65-105) mg/dL Calcium 8.3 L (8.6-10.4) mg/dl Phosphorus (2.5-4.5) mg/dL Magnesium 2.0 (1.6-2.3) mg/dL Total Bilirubin 0.7 (0.2-1.3) mg/dL AST 38 H (14-36) U/L ALT 33 (9-52) U/L Alkaline Phosphatase 73 (38-126) U/L Troponin I < 0.0120 (0.00-0.120) ng/mL NT-Pro-B Natriuret Pep 350 (0-900) pg/mL Total Protein 7.3 (6.3-8.3) g/dL Albumin 3.6 (3.5-5.0) g/dL Globulin 3.7 (2.2-3.9) gm/dL Albumin/Globulin Ratio 1.0 (1.0-2.1) Free T4 (0.78-2.19) ng/dL TSH 3rd Generation 7.03 H (0.46-4.68) mIU/L Arterial Blood Potassium (3.6-5.2) mmol/L Urine Color (YELLOW) Urine Clarity (Clear) Urine pH (5.0-8.0) Ur Specific [place] (1.003-1.030) Urine Protein (NEGATIVE) mg/dL Urine Glucose (UA) (Normal) mg/dL Urine Ketones (NEGATIVE) mg/dL Urine Blood (NEGATIVE) Urine Nitrate (NEGATIVE) Urine Bilirubin (NEGATIVE) Urine Urobilinogen (0.2-1.0) mg/dL Ur Leukocyte Esterase (Negative) Mamadou/uL Urine WBC (Auto) (0-5) /hpf Urine RBC (Auto) (0-3) /hpf Ur Squamous Epith Cells (0-5) /hpf Urine Bacteria (<OCC) Laboratory Results - last 24 hr 01/03/17 01/03/17 01/03/17 14:34 14:34 14:34 WBC 11.4 H RBC 4.65 Hgb 14.1 Hct 42.8 MCV 92.2 MCH 30.4 MCHC 33.0 RDW 12.9 Plt Count 238 MPV 10.4 Neut % (Auto) 76.3 H Lymph % (Auto) 17.3 L [place] % (Auto) 5.1 Eos % (Auto) 0.6 Baso % (Auto) 0.7 Neut # 8.7 H Lymph # 2.0 [place] # 0.6 Eos # 0.1 Baso # 0.1 PT 11.6 INR 1.0 APTT 24 Puncture Site pCO2 pO2 HCO3 ABG pH ABG Total CO2 ABG O2 Saturation ABG Base Excess Tyler Test ABG Potassium A-a O2 Difference Respiratory Index Glucose Lactate Vent Mode Mechanical Rate FiO2 Tidal Volume PEEP Sodium 137 Potassium 4.0 Chloride 100 Carbon Dioxide 27 Anion Gap 14 BUN 22 H Creatinine 0.5 L Est GFR ( Amer) > 60 Est GFR (Non-Af Amer) > 60 Random Glucose 113 H Calcium 8.3 L Phosphorus Magnesium 2.0 Total Bilirubin 0.7 AST 38 H ALT 33 Alkaline Phosphatase 73 Troponin I < 0.0120 NT-Pro-B Natriuret Pep 350 Total Protein 7.3 Albumin 3.6 Globulin 3.7 Albumin/Globulin Ratio 1.0 Free T4 TSH 3rd Generation 7.03 H Arterial Blood Potassium Urine Color Urine Clarity Urine pH Ur Specific [place] Urine Protein Urine Glucose (UA) Urine Ketones Urine Blood Urine Nitrate Urine Bilirubin Urine Urobilinogen Ur Leukocyte Esterase Urine WBC (Auto) Urine RBC (Auto) Ur Squamous Epith Cells Urine Bacteria 01/03/17 01/03/17 01/04/17 14:45 14:58 05:02 WBC RBC Hgb Hct MCV MCH MCHC RDW Plt Count MPV Neut % (Auto) Lymph % (Auto) [place] % (Auto) Eos % (Auto) Baso % (Auto) Neut # Lymph # [place] # Eos # Baso # PT INR APTT Puncture Site Lr Rr pCO2 39 26 L pO2 427 H 187 H HCO3 27.3 28.3 H ABG pH 7.45 7.59 H ABG Total CO2 28.3 H 25.7 ABG O2 Saturation 100.1 H 99.6 H ABG Base Excess 3.0 4.3 H Tyler Test Unable Pos ABG Potassium 3.5 L 3.2 L A-a O2 Difference 237.0 137.0 Respiratory Index 0.6 0.7 Glucose 121 H 101 Lactate 2.5 H 2.2 H Vent Mode A/c Prvc Mechanical Rate 16 16 FiO2 100.0 50.0 Tidal Volume 450 450 PEEP 5 5 Sodium 138.0 138.0 Potassium Chloride 112.0 H 106.0 Carbon Dioxide Anion Gap BUN Creatinine Est GFR ( Amer) Est GFR (Non-Af Amer) Random Glucose Calcium Phosphorus Magnesium Total Bilirubin AST ALT Alkaline Phosphatase Troponin I NT-Pro-B Natriuret Pep Total Protein Albumin Globulin Albumin/Globulin Ratio Free T4 TSH 3rd Generation Arterial Blood Potassium 3.5 L 3.2 L Urine Color Yellow Urine Clarity Hazy Urine pH 5.0 Ur Specific [place] 1.020 Urine Protein 2+ H Urine Glucose (UA) 1+ Urine Ketones Negative Urine Blood Negative Urine Nitrate Negative Urine Bilirubin Negative Urine Urobilinogen Normal Ur Leukocyte Esterase Neg Urine WBC (Auto) 7 H Urine RBC (Auto) 5 H Ur Squamous Epith Cells 1 Urine Bacteria Rare 01/04/17 01/04/17 01/04/17 06:08 06:08 06:08 WBC 9.2 RBC 4.62 Hgb 14.3 Hct 41.9 MCV 90.8 MCH 31.0 MCHC 34.1 RDW 13.1 Plt Count 228 MPV 11.3 Neut % (Auto) 66.0 Lymph % (Auto) 27.6 [place] % (Auto) 5.5 Eos % (Auto) 0.3 Baso % (Auto) 0.6 Neut # 6.0 Lymph # 2.5 [place] # 0.5 Eos # 0.0 Baso # 0.1 PT INR APTT Puncture Site pCO2 pO2 HCO3 ABG pH ABG Total CO2 ABG O2 Saturation ABG Base Excess Tyler Test ABG Potassium A-a O2 Difference Respiratory Index Glucose Lactate Vent Mode Mechanical Rate FiO2 Tidal Volume PEEP Sodium 138 Potassium 3.1 L Chloride 100 Carbon Dioxide 27 Anion Gap 15 BUN 15 Creatinine 0.6 L Est GFR ( Amer) > 60 Est GFR (Non-Af Amer) > 60 Random Glucose 95 Calcium 8.7 Phosphorus 1.3 L Magnesium 2.0 Total Bilirubin 0.9 AST 33 ALT 34 Alkaline Phosphatase 79 Troponin I NT-Pro-B Natriuret Pep Total Protein 8.0 Albumin 3.5 Globulin 4.5 H Albumin/Globulin Ratio 0.8 L Free T4 1.46 TSH 3rd Generation Arterial Blood Potassium Urine Color Urine Clarity Urine pH Ur Specific [place] Urine Protein Urine Glucose (UA) Urine Ketones Urine Blood Urine Nitrate Urine Bilirubin Urine Urobilinogen Ur Leukocyte Esterase Urine WBC (Auto) Urine RBC (Auto) Ur Squamous Epith Cells Urine Bacteria EKG/Cardiology Studies: Cardiology / EKG Studies 01/03/17 14:28 ELECTROCARDIOGRAM Stat Comment: Mode Of Transportation: BED Reason For Exam: SOB Isolation: Contact Review of Systems - Review of Systems Systems not reviewed;Unavailable: Intubated Critical Care Progress Note - Nutrition Nutrition: Nutrition Category Date Time Status NPO Diet [DIET] Diets 01/03/17 Dinner Active Assessment/Plan - Assessment and Plan (Free Text) Assessment: Patient is an 81 year old female with PMHx of Alzheimer's Dementia, HTN, stroke , hypothyroidism admitted for respiratory failure, intubated, after an episode of choking in the longterm. Plan: Neuro: hx Alzheimer's Dementia, possible seizure hx -nonverbal and does not follow commands at baseline -continue home medication Keppra 500 mg po BID Pulm: intubated, secondary to respiratory failure, possibly 2/2 aspiration pneumonia cxray (01/03): patchy opacity at the left lung base, possibly atelectasis or pneumonia. Right hilar prominence. Biapical pleural thickening. - CPAP trial @ [facility] 12 Cardio: hx HTN -monitor BP GI: peg tube Jevity 1.5 @ 20 ml /hr Nephro: Electrolyte abnormality -Potassium and Phosphorous repleted -f/u labs Endo: hx hypothyroidism -continue home med: Synthroid 100mcg daily -TSH: 7.03 -free T4: 1.46 ID: -WBC: decreased to 9.2 on 01/04 from 11.4 -Lactate (01/04) decreased to 2.2 from (01/03): 2.5 -Cefepime 1 gm given in ED -Cefepime 1gm q12h -Flagyl 500 q8h -1 dose Vanco 1,000 mg -f/u blood, urine cultures Prophylaxis: -GI: Pepcid 20 mg ivp daily -DVT: SCDs, Heparin 5000 u sc q12h -palliative care consulted, help appreciated <Stephane Ferrer - Last Filed: 01/04/17 17:25> CCU Objective - Vital Signs / Intake & Output Intake and Output (Last 8hrs): Intake & Output 01/04/17 01/04/17 01/04/17 06:59 14:59 22:59 Intake Total 200 246 Output Total 260 210 Balance -60 36 Weight 125 lb 14.4 oz Intake: Intake, IV Amount 226 Left Distal Port Forearm 100 Left Forearm 126 Tube Feeding 140 20 Other 60 Output: Urine 260 210 Urethral (Hutchins) 260 210 Other: # Bowel Movements 0 - Medications Active Medications: Active Medications Generic Name Dose Route Start Last Admin Trade Name Rosendoq PRN Reason Stop Dose Admin Famotidine 20 mg 01/04/17 10:00 01/04/17 10:35 Pepcid IVP 20 mg DAILY ODETTE Administration Heparin Sodium (Porcine) 5,000 units 01/03/17 22:00 01/04/17 10:35 Heparin SC 5,000 units Q12 ODETTE Administration Metronidazole 500 mg in 100 mls @ 100 mls/hr 01/03/17 18:00 01/04/17 10:35 Flagyl IVPB 100 mls/hr Q8H ODETTE Administration Cefepime HCl 1 gm in 50 mls @ 100 mls/hr 01/04/17 06:00 01/04/17 05:02 Maxipime Iv 1 Gm Premix IVPB 100 mls/hr Q12H ODETTE Administration Potassium Phosphate 15 mmole/ 255 mls @ 42.5 mls/hr 01/04/17 15:00 01/04/17 16:48 Dextrose IVPB 11/15/17 20:59 42.5 mls/hr ONCE ONE Administration Levetiracetam 500 mg 01/03/17 18:00 01/04/17 10:35 Keppra PO 500 mg BID ODETTE Administration Levothyroxine Sodium 100 mcg 01/04/17 06:30 01/04/17 05:47 Synthroid PO 100 mcg DAILY@0630 ODETTE Administration - Patient Studies Lab Studies: Lab Studies 01/04/17 01/04/17 01/04/17 Range/Units 06:08 06:08 06:08 WBC 9.2 (4.8-10.8) K/uL RBC 4.62 (3.80-5.20) Mil/uL Hgb 14.3 (11.0-16.0) g/dL Hct 41.9 (34.0-47.0) % MCV 90.8 (81.0-99.0) fL MCH 31.0 (27.0-31.0) pg MCHC 34.1 (33.0-37.0) g/dL RDW 13.1 (11.5-14.5) % Plt Count 228 (130-400) K/uL MPV 11.3 (7.2-11.7) fL Neut % (Auto) 66.0 (50.0-75.0) % Lymph % (Auto) 27.6 (20.0-40.0) % [place] % (Auto) 5.5 (0.0-10.0) % Eos % (Auto) 0.3 (0.0-4.0) % Baso % (Auto) 0.6 (0.0-2.0) % Neut # 6.0 (1.8-7.0) K/uL Lymph # 2.5 (1.0-4.3) K/uL [place] # 0.5 (0.0-0.8) K/uL Eos # 0.0 (0.0-0.7) K/uL Baso # 0.1 (0.0-0.2) K/uL Puncture Site pCO2 (35-45) mm/Hg pO2 (80-100) mm/Hg HCO3 (21-28) mmol/L ABG pH (7.35-7.45) ABG Total CO2 (22-28) mmol/L ABG O2 Saturation (95-98) % ABG Base Excess (-2.0-3.0) mmol/L Tyler Test ABG Potassium (3.6-5.2) mmol/L A-a O2 Difference mm/Hg Respiratory Index Sodium 138 (132-148) mmol/l Chloride 100 (98-107) mmol/L Glucose (65-105) mg/dl Lactate (0.7-2.1) mmol/L Vent Mode Mechanical Rate FiO2 % Tidal Volume PEEP Potassium 3.1 L (3.6-5.2) mmol/L Carbon Dioxide 27 (22-30) mmol/L Anion Gap 15 (10-20) BUN 15 (7-17) mg/dL Creatinine 0.6 L (0.7-1.2) mg/dL Est GFR ( Amer) > 60 Est GFR (Non-Af Amer) > 60 Random Glucose 95 (65-105) mg/dL Calcium 8.7 (8.6-10.4) mg/dl Phosphorus 1.3 L (2.5-4.5) mg/dL Magnesium 2.0 (1.6-2.3) mg/dL Total Bilirubin 0.9 (0.2-1.3) mg/dL AST 33 (14-36) U/L ALT 34 (9-52) U/L Alkaline Phosphatase 79 (38-126) U/L Total Protein 8.0 (6.3-8.3) g/dL Albumin 3.5 (3.5-5.0) g/dL Globulin 4.5 H (2.2-3.9) gm/dL Albumin/Globulin Ratio 0.8 L (1.0-2.1) Free T4 1.46 (0.78-2.19) ng/dL Arterial Blood Potassium (3.6-5.2) mmol/L 01/04/17 Range/Units 05:02 WBC (4.8-10.8) K/uL RBC (3.80-5.20) Mil/uL Hgb (11.0-16.0) g/dL Hct (34.0-47.0) % MCV (81.0-99.0) fL MCH (27.0-31.0) pg MCHC (33.0-37.0) g/dL RDW (11.5-14.5) % Plt Count (130-400) K/uL MPV (7.2-11.7) fL Neut % (Auto) (50.0-75.0) % Lymph % (Auto) (20.0-40.0) % [place] % (Auto) (0.0-10.0) % Eos % (Auto) (0.0-4.0) % Baso % (Auto) (0.0-2.0) % Neut # (1.8-7.0) K/uL Lymph # (1.0-4.3) K/uL [place] # (0.0-0.8) K/uL Eos # (0.0-0.7) K/uL Baso # (0.0-0.2) K/uL Puncture Site Rr pCO2 26 L (35-45) mm/Hg pO2 187 H (80-100) mm/Hg HCO3 28.3 H (21-28) mmol/L ABG pH 7.59 H (7.35-7.45) ABG Total CO2 25.7 (22-28) mmol/L ABG O2 Saturation 99.6 H (95-98) % ABG Base Excess 4.3 H (-2.0-3.0) mmol/L Tyler Test Pos ABG Potassium 3.2 L (3.6-5.2) mmol/L A-a O2 Difference 137.0 mm/Hg Respiratory Index 0.7 Sodium 138.0 (132-148) mmol/l Chloride 106.0 (98-107) mmol/L Glucose 101 (65-105) mg/dl Lactate 2.2 H (0.7-2.1) mmol/L Vent Mode Prvc Mechanical Rate 16 FiO2 50.0 % Tidal Volume 450 PEEP 5 Potassium (3.6-5.2) mmol/L Carbon Dioxide (22-30) mmol/L Anion Gap (10-20) BUN (7-17) mg/dL Creatinine (0.7-1.2) mg/dL Est GFR ( Amer) Est GFR (Non-Af Amer) Random Glucose (65-105) mg/dL Calcium (8.6-10.4) mg/dl Phosphorus (2.5-4.5) mg/dL Magnesium (1.6-2.3) mg/dL Total Bilirubin (0.2-1.3) mg/dL AST (14-36) U/L ALT (9-52) U/L Alkaline Phosphatase (38-126) U/L Total Protein (6.3-8.3) g/dL Albumin (3.5-5.0) g/dL Globulin (2.2-3.9) gm/dL Albumin/Globulin Ratio (1.0-2.1) Free T4 (0.78-2.19) ng/dL Arterial Blood Potassium 3.2 L (3.6-5.2) mmol/L Laboratory Results - last 24 hr 01/04/17 01/04/17 01/04/17 05:02 06:08 06:08 WBC 9.2 RBC 4.62 Hgb 14.3 Hct 41.9 MCV 90.8 MCH 31.0 MCHC 34.1 RDW 13.1 Plt Count 228 MPV 11.3 Neut % (Auto) 66.0 Lymph % (Auto) 27.6 [place] % (Auto) 5.5 Eos % (Auto) 0.3 Baso % (Auto) 0.6 Neut # 6.0 Lymph # 2.5 [place] # 0.5 Eos # 0.0 Baso # 0.1 Puncture Site Rr pCO2 26 L pO2 187 H HCO3 28.3 H ABG pH 7.59 H ABG Total CO2 25.7 ABG O2 Saturation 99.6 H ABG Base Excess 4.3 H [place] Test Pos ABG Potassium 3.2 L A-a O2 Difference 137.0 Respiratory Index 0.7 Sodium 138.0 138 Chloride 106.0 100 Glucose 101 Lactate 2.2 H Vent Mode Prvc Mechanical Rate 16 FiO2 50.0 Tidal Volume 450 PEEP 5 Potassium 3.1 L Carbon Dioxide 27 Anion Gap 15 BUN 15 Creatinine 0.6 L Est GFR ( Amer) > 60 Est GFR (Non-Af Amer) > 60 Random Glucose 95 Calcium 8.7 Phosphorus 1.3 L Magnesium 2.0 Total Bilirubin 0.9 AST 33 ALT 34 Alkaline Phosphatase 79 Total Protein 8.0 Albumin 3.5 Globulin 4.5 H Albumin/Globulin Ratio 0.8 L Free T4 Arterial Blood Potassium 3.2 L 01/04/17 06:08 WBC RBC Hgb Hct MCV MCH MCHC RDW Plt Count MPV Neut % (Auto) Lymph % (Auto) [place] % (Auto) Eos % (Auto) Baso % (Auto) Neut # Lymph # [place] # Eos # Baso # Puncture Site pCO2 pO2 HCO3 ABG pH ABG Total CO2 ABG O2 Saturation ABG Base Excess [place] Test ABG Potassium A-a O2 Difference Respiratory Index Sodium Chloride Glucose Lactate Vent Mode Mechanical Rate FiO2 Tidal Volume PEEP Potassium Carbon Dioxide Anion Gap BUN Creatinine Est GFR ( Amer) Est GFR (Non-Af Amer) Random Glucose Calcium Phosphorus Magnesium Total Bilirubin AST ALT Alkaline Phosphatase Total Protein Albumin Globulin Albumin/Globulin Ratio Free T4 1.46 Arterial Blood Potassium Critical Care Progress Note - Nutrition Nutrition: Nutrition Category Date Time Status NPO Diet [DIET] Diets 01/03/17 Dinner Active Attending/Attestation - Attestation I have personally seen and examined this patient.: Yes I have fully participated in the care of the patient.: Yes I have reviewed all pertinent clinical information: Yes Notes (Text): 01/04/17 17:20 Patient seen and examined in the intensive care unit. Case discussed with staff in the morning. Remains intubated on ventilatory support not tolerating weaning Continue antibiotics and follow up culture and sensitivity Family signed DNR Continue DVT and stress ulcer prophylaxis
[2017-01-05] MEDS: metroNIDAZOLE IV 500 mg/100 ml 500 MG/100 ML BAG IVPB SCH ×3 (02:32→19:32)
[2017-01-05 05:33] LABS: ABG ALLEN TEST POS; ABG MECHANICAL RATE 16; ARTERIAL BLOOD GAS MODE PRVC; ARTERIAL BLOOD HGB O2 SAT 97.1 % (95.0-98.0); ATERIAL BLOOD GAS PEEP 5; CARBOXYHEMOGLOBIN 1.3 % (0.5-1.5); DRAW SITE RR; HHB 0.3 % (0.0-5.0); METHEMOGLOBIN 1.3 % (0.0-3.0)
[2017-01-05 06:24] LABS: BASO # 0.1 K/uL (0.0-0.2); BASO % 1.1 % (0.0-2.0); EOS # 0.2 K/uL (0.0-0.7); HEMATOCRIT 38.2 % (34.0-47.0); LYMPH # 2.5 K/uL (1.0-4.3); MEAN CELL VOLUME 90.5 fL (81.0-99.0); MEAN CORPUSCULAR HEMOGLOBIN 30.5 pg (27.0-31.0); MEAN CORPUSCULAR HGB CONC 33.7 g/dL (33.0-37.0); MONO # 0.7 K/uL (0.0-0.8); MONO % 7.6 % (0.0-10.0); NRBC % 0.1 % (0.0-2.0); RED CELL DISTRIBUTION WIDTH 13.2 % (11.5-14.5); WHITE BLOOD COUNT 9.1 K/uL (4.8-10.8)
[2017-01-05 06:38] LABS: ALB/GLOB RATIO 0.8 (1.0-2.1); ALKALINE PHOSPHATASE 70 U/L (38-126); ALT/SGPT 42 U/L (9-52); AST/SGOT 27 U/L (14-36); BILIRUBIN,TOTAL 0.6 mg/dL (0.2-1.3); BLOOD UREA NITROGEN 11 mg/dL (7-17); CALCIUM 8.2 mg/dl (8.6-10.4); CARBON DIOXIDE 21 mmol/L (22-30); CHLORIDE 103 mmol/L (98-107); GFR AFRICAN-AMERICAN > 60; GLUCOSE,RANDOM 110 mg/dL (65-105); MAGNESIUM 1.9 mg/dL (1.6-2.3); PHOSPHOROUS 2.8 mg/dL (2.5-4.5); POTASSIUM 2.8 mmol/L (3.6-5.2); SODIUM 135 mmol/L (132-148); TOTAL PROTEIN 7.5 g/dL (6.3-8.3)
[2017-01-05] MEDS: Cefepime IV 1 gm in Dextrose 1 GM/50 ML BAG IVPB SCH ×2 (06:38→19:34)
[2017-01-05] MEDS: Levothyroxine 100 MCG TAB PO SCH (06:39)
[2017-01-05] MEDS: Potassium Chloride 20 mEq/15 ml LIQ UD PO SCH ×3 (08:25→16:31)
--- NOTE | 2017-01-05 08:37 | CARD ---
APPROVED REPORT EKG Measurement Heart [id number] <Conclusion> Sinus tachycardia Septal infarct, age undetermined Abnormal ECG
--- NOTE | 2017-01-05 08:49 | RAD ---
Chest x-ray single frontal view History: Intubated. Comparison: 01/04/2017 Findings: Endotracheal tube extending into the mid thoracic trachea. Diffuse increased interstitial lung markings. Biapical pleural thickening with upper lobe granulomatous changes. Patchy increased opacities in the bilateral suprahilar regions. Mild patchy increased opacity within the left lung base. Calcification at the aortic knob. Heart size within normal limits. Degenerative changes in the spine and shoulders. Curvilinear radiopaque opacities in the upper abdomen. Impression: Endotracheal tube extending into the mid thoracic trachea. Diffuse increased interstitial lung markings. Biapical pleural thickening with upper lobe granulomatous changes. Patchy increased opacities in the bilateral suprahilar regions. Mild patchy increased opacity within the left lung base. Curvilinear radiopaque opacities in the upper abdomen.
[2017-01-05] MEDS ORDERED: Multiple Vitamins Oral Solution PO SCH (10:00)
[2017-01-05] MEDS: Magnesium Sulfate 1 gm in D5W 1 GM/100 ML BAG IVPB SCH ×2 (10:58→11:41)
--- NOTE | 2017-01-05 11:33 | CP.CCUPN ---
<Charlotte Lyon - Last Filed: 01/05/17 11:28> CCU Subjective - Physician Review Subjective (Free Text): Patient seen and examined at bedside. Patient intubated. Patient nonverbal at baseline. ROS unobtainable. CCU Objective - Vital Signs / Intake & Output Vital Signs (Last 4 hours): Vital Signs Pulse Ox 01/05/17 08:17 99 Intake and Output (Last 8hrs): Intake & Output 01/04/17 01/05/17 01/05/17 22:59 06:59 14:59 Intake Total 550.0 482.5 40 Output Total 240 365 30 Balance 310.0 117.5 10 Weight 125 lb 7 oz Intake: Intake, IV Amount 320.0 192.5 Left Distal Port Forearm 150 Left Forearm 170.0 42.5 Right Hand 150 Tube Feeding 230 290 40 Output: Urine 240 365 30 Urethral (Boyd) 240 365 30 Other: # Bowel Movements 1 1 - Physical Exam Head: Positive for: Atraumatic, Normocephalic Extroacular Muscles: Positive for: EOMI Conjunctiva: Positive for: Injected Mouth: Positive for: Moist Mucous Membranes Respiratory/Chest: Positive for: Decreased Breath Sounds, Rhonchi Cardiovascular: Positive for: Normal S1, S2 Abdomen: Positive for: Other (PEG in place). Negative for: Tenderness Upper Extremity: Positive for: Other (contracted bilaterally ) Lower Extremity: Negative for: Edema Skin: Positive for: Warm, Normal Color Psychiatric: Negative for: Alert, Oriented x 3 - Medications Active Medications: Active Medications Generic Name Dose Route Start Last Admin Trade Name Freq PRN Reason Stop Dose Admin Albuterol/Ipratropium 3 ml 01/05/17 14:00 Duoneb 3 Mg/0.5 Mg (3 Ml) Ud INH RQ6 ODETTE Ascorbic Acid 500 mg 01/05/17 10:00 01/05/17 10:58 Vitamin C 500 Mg Tab PO 500 mg DAILY ODETTE Administration Famotidine 20 mg 01/04/17 10:00 01/05/17 10:57 Pepcid IVP 20 mg DAILY ODETTE Administration Heparin Sodium (Porcine) 5,000 units 01/03/17 22:00 01/05/17 10:57 Heparin SC 5,000 units Q12 ODETTE Administration Metronidazole 500 mg in 100 mls @ 100 mls/hr 01/03/17 18:00 01/05/17 10:59 Flagyl IVPB 100 mls/hr Q8H ODETTE Administration Cefepime HCl 1 gm in 50 mls @ 100 mls/hr 01/04/17 06:00 01/05/17 06:38 Maxipime Iv 1 Gm Premix IVPB 100 mls/hr Q12H ODETTE Administration Insulin Human Regular 0 unit 01/05/17 12:00 Novolin R SC Q6 [facility] Protocol Levetiracetam 500 mg 01/03/17 18:00 01/04/17 18:14 Keppra PO 500 mg BID ODETTE Administration Levothyroxine Sodium 100 mcg 01/04/17 06:30 01/05/17 06:39 Synthroid PO 100 mcg DAILY@0630 ODETTE Administration Lorazepam 2 mg 01/05/17 09:52 Ativan IVP Q4H PRN Seizure activity Multivitamins/Vitamin C 5 ml 01/05/17 10:00 Multi-Delyn Liquid PO DAILY ODETTE Potassium Chloride 40 meq 01/05/17 08:00 01/05/17 08:25 Potassium Chloride Oral Soln PO 01/05/17 16:01 40 meq Q4H ODETTE Administration Zinc Sulfate 220 mg 01/05/17 10:00 01/05/17 10:58 Zinc Sulfate 220 Mg Cap PO 220 mg DAILY ODETTE Administration - Patient Studies Lab Studies: Microbiology Studies 01/03/17 15:55 Urine Culture - Final Urine,Boyd Enterococcus Faecalis 01/03/17 14:55 Blood Culture - Preliminary Blood NO GROWTH AFTER 24 HOURS 01/03/17 14:25 Blood Culture - Preliminary Blood NO GROWTH AFTER 24 HOURS 01/03/17 17:03 MRSA Culture (Admit) - Final Naris MRSA NOT DETECTED Lab Studies 01/05/17 01/05/17 01/05/17 Range/Units 06:15 06:15 05:23 WBC 9.1 (4.8-10.8) K/uL RBC 4.22 (3.80-5.20) Mil/uL Hgb 12.9 (11.0-16.0) g/dL Hct 38.2 (34.0-47.0) % MCV 90.5 (81.0-99.0) fL MCH 30.5 (27.0-31.0) pg MCHC 33.7 (33.0-37.0) g/dL RDW 13.2 (11.5-14.5) % Plt Count 222 (130-400) K/uL MPV 11.0 (7.2-11.7) fL Neut % (Auto) 62.3 (50.0-75.0) % Lymph % (Auto) 27.0 (20.0-40.0) % [place] % (Auto) 7.6 (0.0-10.0) % Eos % (Auto) 2.0 (0.0-4.0) % Baso % (Auto) 1.1 (0.0-2.0) % Neut # 5.7 (1.8-7.0) K/uL Lymph # 2.5 (1.0-4.3) K/uL [place] # 0.7 (0.0-0.8) K/uL Eos # 0.2 (0.0-0.7) K/uL Baso # 0.1 (0.0-0.2) K/uL Puncture Site Rr pCO2 25 L (35-45) mm/Hg pO2 186 H (80-100) mm/Hg HCO3 28.0 (21-28) mmol/L ABG pH 7.60 H (7.35-7.45) ABG Total CO2 25.3 (22-28) mmol/L ABG O2 Saturation 99.7 H (95-98) % ABG Base Excess 4.0 H (-2.0-3.0) mmol/L ABG Hemoglobin 12.5 (11.7-17.4) g/dL ABG Carboxyhemoglobin 1.3 (0.5-1.5) % POC ABG HHb (Measured) 0.3 (0.0-5.0) % ABG Methemoglobin 1.3 (0.0-3.0) % Tyler Test Pos A-a O2 Difference 139.0 mm/Hg Respiratory Index 0.7 Hgb O2 Saturation 97.1 (95.0-98.0) % Vent Mode Prvc Mechanical Rate 16 FiO2 50.0 % Tidal Volume 450 PEEP 5 Sodium 135 (132-148) mmol/L Potassium 2.8 L (3.6-5.2) mmol/L Chloride 103 (98-107) mmol/L Carbon Dioxide 21 L (22-30) mmol/L Anion Gap 14 (10-20) BUN 11 (7-17) mg/dL Creatinine 0.5 L (0.7-1.2) mg/dL Est GFR ( Amer) > 60 Est GFR (Non-Af Amer) > 60 Random Glucose 110 H (65-105) mg/dL Calcium 8.2 L (8.6-10.4) mg/dl Phosphorus 2.8 (2.5-4.5) mg/dL Magnesium 1.9 (1.6-2.3) mg/dL Total Bilirubin 0.6 (0.2-1.3) mg/dL AST 27 (14-36) U/L ALT 42 (9-52) U/L Alkaline Phosphatase 70 (38-126) U/L Total Protein 7.5 (6.3-8.3) g/dL Albumin 3.3 L (3.5-5.0) g/dL Globulin 4.2 H (2.2-3.9) gm/dL Albumin/Globulin Ratio 0.8 L (1.0-2.1) Laboratory Results - last 24 hr 01/05/17 01/05/17 01/05/17 05:23 06:15 06:15 WBC 9.1 RBC 4.22 Hgb 12.9 Hct 38.2 MCV 90.5 MCH 30.5 MCHC 33.7 RDW 13.2 Plt Count 222 MPV 11.0 Neut % (Auto) 62.3 Lymph % (Auto) 27.0 [place] % (Auto) 7.6 Eos % (Auto) 2.0 Baso % (Auto) 1.1 Neut # 5.7 Lymph # 2.5 [place] # 0.7 Eos # 0.2 Baso # 0.1 Puncture Site Rr pCO2 25 L pO2 186 H HCO3 28.0 ABG pH 7.60 H ABG Total CO2 25.3 ABG O2 Saturation 99.7 H ABG Base Excess 4.0 H ABG Hemoglobin 12.5 ABG Carboxyhemoglobin 1.3 POC ABG HHb (Measured) 0.3 ABG Methemoglobin 1.3 Tyler Test Pos A-a O2 Difference 139.0 Respiratory Index 0.7 Hgb O2 Saturation 97.1 Vent Mode Prvc Mechanical Rate 16 FiO2 50.0 Tidal Volume 450 PEEP 5 Sodium 135 Potassium 2.8 L Chloride 103 Carbon Dioxide 21 L Anion Gap 14 BUN 11 Creatinine 0.5 L Est GFR ( Amer) > 60 Est GFR (Non-Af Amer) > 60 Random Glucose 110 H Calcium 8.2 L Phosphorus 2.8 Magnesium 1.9 Total Bilirubin 0.6 AST 27 ALT 42 Alkaline Phosphatase 70 Total Protein 7.5 Albumin 3.3 L Globulin 4.2 H Albumin/Globulin Ratio 0.8 L Review of Systems - Review of Systems Systems not reviewed;Unavailable: Intubated Critical Care Progress Note - Nutrition Nutrition: Nutrition Category Date Time Status NPO Diet [DIET] Diets 01/03/17 Dinner Active Assessment/Plan - Assessment and Plan (Free Text) Assessment: Patient is an 81 year old female with PMHx of Alzheimer's Dementia, HTN, stroke , hypothyroidism admitted for respiratory failure, intubated, after an episode of choking in the group home. Plan: Neuro: hx Alzheimer's Dementia, possible seizure hx -nonverbal and does not follow commands at baseline -continue home medication Keppra 500 mg po BID -patient having rhythmic seizure like movement today (01/05), given Ativan 2mg stat -Ativan prn for seizure activity Pulm: intubated, secondary to respiratory failure, possibly 2/2 aspiration pneumonia cxray (01/03): patchy opacity at the left lung base, possibly atelectasis or pneumonia. Right hilar prominence. Biapical pleural thickening. cxray (01/05): diffuse increased interstitial lung markings. Biapical pleural thickening with upper lobe granulomatous changes. Pathcy increased opacities in the bilateral suprahilar regions. Mild patchy increased opacity within the left lung base. Curvilinear radiopaque opacities in the upper abdomen. - CPAP trial @ PS 12 -duonebs q6h Cardio: hx HTN -monitor BP GI: peg tube Jevity 1.5 @ 20 ml /hr Nephro: Electrolyte abnormality -Potassium 2.8 on 01/05, repleted -Magnesium repleted -boyd d/c on 01/05 Endo: hx hypothyroidism -continue home med: Synthroid 100mcg daily -accuchecks -ISS q6h -TSH: 7.03 -free T4: 1.46 Skin: sacral wound -Zinc 220mg po daily -Vitamin C 500 mg po daily -Multivitamin daily -wound care ID: -WBC: decreased to 9.2 on 01/04 from 11.4 -Lactate (01/04) decreased to 2.2 from (01/03): 2.5 -Cefepime 1 gm given in ED -Cefepime 1gm q12h -Flagyl 500 q8h -1 dose Vanco 1,000 mg -f/u blood, urine cultures Prophylaxis: -GI: Pepcid 20 mg ivp daily -DVT: SCDs, Heparin 5000 u sc q12h -palliative care consulted, help appreciated <Donta Shultz - Last Filed: 01/05/17 16:05> CCU Subjective - Physician Review Critical Care Time Spent (in minutes): 40 CCU Objective - Vital Signs / Intake & Output Intake and Output (Last 8hrs): Intake & Output 01/05/17 01/05/17 01/05/17 06:59 14:59 22:59 Intake Total 482.5 40 Output Total 365 30 Balance 117.5 10 Weight 125 lb 7 oz Intake: Intake, IV Amount 192.5 Left Forearm 42.5 Right Hand 150 Tube Feeding 290 40 Output: Urine 365 30 Urethral (Boyd) 365 30 Other: # Bowel Movements 1 - Medications Active Medications: Active Medications Generic Name Dose Route Start Last Admin Trade Name Freq PRN Reason Stop Dose Admin Albuterol/Ipratropium 3 ml 01/05/17 14:00 Duoneb 3 Mg/0.5 Mg (3 Ml) Ud INH RQ6 ODETTE Ascorbic Acid 500 mg 01/05/17 10:00 01/05/17 10:58 Vitamin C 500 Mg Tab PO 500 mg DAILY ODETTE Administration Famotidine 20 mg 01/04/17 10:00 01/05/17 10:57 Pepcid IVP 20 mg DAILY ODETTE Administration Heparin Sodium (Porcine) 5,000 units 01/03/17 22:00 01/05/17 10:57 Heparin SC 5,000 units Q12 ODETTE Administration Metronidazole 500 mg in 100 mls @ 100 mls/hr 01/03/17 18:00 01/05/17 10:59 Flagyl IVPB 100 mls/hr Q8H ODETTE Administration Cefepime HCl 1 gm in 50 mls @ 100 mls/hr 01/04/17 06:00 01/05/17 06:38 Maxipime Iv 1 Gm Premix IVPB 100 mls/hr Q12H ODETTE Administration Insulin Human Regular 0 unit 01/05/17 12:00 Novolin R SC Q6 [facility]ETTE Protocol Levetiracetam 500 mg 01/03/17 18:00 01/05/17 11:40 Keppra PO 500 mg BID ODETTE Administration Levothyroxine Sodium 100 mcg 01/04/17 06:30 01/05/17 06:39 Synthroid PO 100 mcg DAILY@0630 ODETTE Administration Lorazepam 2 mg 01/05/17 09:52 Ativan IVP Q4H PRN Seizure activity Multivitamins/Vitamin C 5 ml 01/05/17 10:00 01/05/17 11:40 Multi-Delyn Liquid PO 5 ml DAILY ODETTE Administration Potassium Chloride 40 meq 01/05/17 08:00 01/05/17 11:48 Potassium Chloride Oral Soln PO 01/05/17 16:01 40 meq Q4H ODETTE Administration Zinc Sulfate 220 mg 01/05/17 10:00 01/05/17 10:58 Zinc Sulfate 220 Mg Cap PO 220 mg DAILY ODETTE Administration - Patient Studies Lab Studies: Microbiology Studies 01/03/17 15:55 Urine Culture - Final Urine,Obyd Enterococcus Faecalis 01/03/17 14:55 Blood Culture - Preliminary Blood NO GROWTH AFTER 24 HOURS 01/03/17 14:25 Blood Culture - Preliminary Blood NO GROWTH AFTER 24 HOURS 01/03/17 17:03 MRSA Culture (Admit) - Final Naris MRSA NOT DETECTED Lab Studies 01/05/17 01/05/17 01/05/17 Range/Units 11:50 06:15 06:15 WBC 9.1 (4.8-10.8) K/uL RBC 4.22 (3.80-5.20) Mil/uL Hgb 12.9 (11.0-16.0) g/dL Hct 38.2 (34.0-47.0) % MCV 90.5 (81.0-99.0) fL MCH 30.5 (27.0-31.0) pg MCHC 33.7 (33.0-37.0) g/dL RDW 13.2 (11.5-14.5) % Plt Count 222 (130-400) K/uL MPV 11.0 (7.2-11.7) fL Neut % (Auto) 62.3 (50.0-75.0) % Lymph % (Auto) 27.0 (20.0-40.0) % [place] % (Auto) 7.6 (0.0-10.0) % Eos % (Auto) 2.0 (0.0-4.0) % Baso % (Auto) 1.1 (0.0-2.0) % Neut # 5.7 (1.8-7.0) K/uL Lymph # 2.5 (1.0-4.3) K/uL [place] # 0.7 (0.0-0.8) K/uL Eos # 0.2 (0.0-0.7) K/uL Baso # 0.1 (0.0-0.2) K/uL Puncture Site pCO2 (35-45) mm/Hg pO2 (80-100) mm/Hg HCO3 (21-28) mmol/L ABG pH (7.35-7.45) ABG Total CO2 (22-28) mmol/L ABG O2 Saturation (95-98) % ABG Base Excess (-2.0-3.0) mmol/L ABG Hemoglobin (11.7-17.4) g/dL ABG Carboxyhemoglobin (0.5-1.5) % POC ABG HHb (Measured) (0.0-5.0) % ABG Methemoglobin (0.0-3.0) % Tyler Test A-a O2 Difference mm/Hg Respiratory Index Hgb O2 Saturation (95.0-98.0) % Vent Mode Mechanical Rate FiO2 % Tidal Volume PEEP Sodium 135 (132-148) mmol/L Potassium 2.8 L (3.6-5.2) mmol/L Chloride 103 (98-107) mmol/L Carbon Dioxide 21 L (22-30) mmol/L Anion Gap 14 (10-20) BUN 11 (7-17) mg/dL Creatinine 0.5 L (0.7-1.2) mg/dL Est GFR ( Amer) > 60 Est GFR (Non-Af Amer) > 60 POC Glucose (mg/dL) 158 H (65-110) mg/dL Random Glucose 110 H (65-105) mg/dL Calcium 8.2 L (8.6-10.4) mg/dl Phosphorus 2.8 (2.5-4.5) mg/dL Magnesium 1.9 (1.6-2.3) mg/dL Total Bilirubin 0.6 (0.2-1.3) mg/dL AST 27 (14-36) U/L ALT 42 (9-52) U/L Alkaline Phosphatase 70 (38-126) U/L Total Protein 7.5 (6.3-8.3) g/dL Albumin 3.3 L (3.5-5.0) g/dL Globulin 4.2 H (2.2-3.9) gm/dL Albumin/Globulin Ratio 0.8 L (1.0-2.1) 01/05/17 Range/Units 05:23 WBC (4.8-10.8) K/uL RBC (3.80-5.20) Mil/uL Hgb (11.0-16.0) g/dL Hct (34.0-47.0) % MCV (81.0-99.0) fL MCH (27.0-31.0) pg MCHC (33.0-37.0) g/dL RDW (11.5-14.5) % Plt Count (130-400) K/uL MPV (7.2-11.7) fL Neut % (Auto) (50.0-75.0) % Lymph % (Auto) (20.0-40.0) % [place] % (Auto) (0.0-10.0) % Eos % (Auto) (0.0-4.0) % Baso % (Auto) (0.0-2.0) % Neut # (1.8-7.0) K/uL Lymph # (1.0-4.3) K/uL [place] # (0.0-0.8) K/uL Eos # (0.0-0.7) K/uL Baso # (0.0-0.2) K/uL Puncture Site Rr pCO2 25 L (35-45) mm/Hg pO2 186 H (80-100) mm/Hg HCO3 28.0 (21-28) mmol/L ABG pH 7.60 H (7.35-7.45) ABG Total CO2 25.3 (22-28) mmol/L ABG O2 Saturation 99.7 H (95-98) % ABG Base Excess 4.0 H (-2.0-3.0) mmol/L ABG Hemoglobin 12.5 (11.7-17.4) g/dL ABG Carboxyhemoglobin 1.3 (0.5-1.5) % POC ABG HHb (Measured) 0.3 (0.0-5.0) % ABG Methemoglobin 1.3 (0.0-3.0) % Tyler Test Pos A-a O2 Difference 139.0 mm/Hg Respiratory Index 0.7 Hgb O2 Saturation 97.1 (95.0-98.0) % Vent Mode Prvc Mechanical Rate 16 FiO2 50.0 % Tidal Volume 450 PEEP 5 Sodium (132-148) mmol/L Potassium (3.6-5.2) mmol/L Chloride (98-107) mmol/L Carbon Dioxide (22-30) mmol/L Anion Gap (10-20) BUN (7-17) mg/dL Creatinine (0.7-1.2) mg/dL Est GFR ( Amer) Est GFR (Non-Af Amer) POC Glucose (mg/dL) (65-110) mg/dL Random Glucose (65-105) mg/dL Calcium (8.6-10.4) mg/dl Phosphorus (2.5-4.5) mg/dL Magnesium (1.6-2.3) mg/dL Total Bilirubin (0.2-1.3) mg/dL AST (14-36) U/L ALT (9-52) U/L Alkaline Phosphatase (38-126) U/L Total Protein (6.3-8.3) g/dL Albumin (3.5-5.0) g/dL Globulin (2.2-3.9) gm/dL Albumin/Globulin Ratio (1.0-2.1) Laboratory Results - last 24 hr 01/05/17 01/05/17 01/05/17 05:23 06:15 06:15 WBC 9.1 RBC 4.22 Hgb 12.9 Hct 38.2 MCV 90.5 MCH 30.5 MCHC 33.7 RDW 13.2 Plt Count 222 MPV 11.0 Neut % (Auto) 62.3 Lymph % (Auto) 27.0 [place] % (Auto) 7.6 Eos % (Auto) 2.0 Baso % (Auto) 1.1 Neut # 5.7 Lymph # 2.5 [place] # 0.7 Eos # 0.2 Baso # 0.1 Puncture Site Rr pCO2 25 L pO2 186 H HCO3 28.0 ABG pH 7.60 H ABG Total CO2 25.3 ABG O2 Saturation 99.7 H ABG Base Excess 4.0 H ABG Hemoglobin 12.5 ABG Carboxyhemoglobin 1.3 POC ABG HHb (Measured) 0.3 ABG Methemoglobin 1.3 Tyler Test Pos A-a O2 Difference 139.0 Respiratory Index 0.7 Hgb O2 Saturation 97.1 Vent Mode Prvc Mechanical Rate 16 FiO2 50.0 Tidal Volume 450 PEEP 5 Sodium 135 Potassium 2.8 L Chloride 103 Carbon Dioxide 21 L Anion Gap 14 BUN 11 Creatinine 0.5 L Est GFR ( Amer) > 60 Est GFR (Non-Af Amer) > 60 POC Glucose (mg/dL) Random Glucose 110 H Calcium 8.2 L Phosphorus 2.8 Magnesium 1.9 Total Bilirubin 0.6 AST 27 ALT 42 Alkaline Phosphatase 70 Total Protein 7.5 Albumin 3.3 L Globulin 4.2 H Albumin/Globulin Ratio 0.8 L 01/05/17 11:50 WBC RBC Hgb Hct MCV MCH MCHC RDW Plt Count MPV Neut % (Auto) Lymph % (Auto) [place] % (Auto) Eos % (Auto) Baso % (Auto) Neut # Lymph # [place] # Eos # Baso # Puncture Site pCO2 pO2 HCO3 ABG pH ABG Total CO2 ABG O2 Saturation ABG Base Excess ABG Hemoglobin ABG Carboxyhemoglobin POC ABG HHb (Measured) ABG Methemoglobin Tyler Test A-a O2 Difference Respiratory Index Hgb O2 Saturation Vent Mode Mechanical Rate FiO2 Tidal Volume PEEP Sodium Potassium Chloride Carbon Dioxide Anion Gap BUN Creatinine Est GFR ( Amer) Est GFR (Non-Af Amer) POC Glucose (mg/dL) 158 H Random Glucose Calcium Phosphorus Magnesium Total Bilirubin AST ALT Alkaline Phosphatase Total Protein Albumin Globulin Albumin/Globulin Ratio Critical Care Progress Note - Nutrition Nutrition: Nutrition Category Date Time Status NPO Diet [DIET] Diets 01/03/17 Dinner Active Assessment/Plan - Assessment and Plan (Free Text) Assessment: Addendum: Patient seen and examined at bedside. Patient with h/o aspiration and signs and symptoms of anoxic brain injury. Patient is ventialtor dependent -Hypoxic respiratory failure -Sepsis/aspiration pneumonia -Anoxic brain injury -Above resident note reviewed and verified. I agree with above resident not. I have discussed patient's prognosis with son Mr. Wilson (son advised that he needs to talk to 2 other brothers before GOals of care can be provided to ICU team). Prognosis poor, as anoxic brain injury with myotonic jerks. cc time 40 minutes
[2017-01-05] MEDS: levETIRAcetam 100 mg/ml (5ml) Oral Syringe PO SCH ×2 (11:40→19:35)
[2017-01-05] MEDS: (Novolin R) Insulin Human Regular 100 units/ml vial SC SCH ×3 (12:00→23:59)
--- NOTE | 2017-01-05 13:09 | PN ---
DAILY PROGRESS NOTE DATE: 01/04/2017 SUBJECTIVE: The patient was still on ventilator, though opened her eye to responding to her name calling. PHYSICAL EXAMINATION: VITAL SIGNS: Blood pressure was 103/64, temperature 98.8, respiratory rate 20 and pulse 77. CHEST AND LUNG: Bilateral symmetrical expansion. Good air exchange. No rales. No rhonchi. CARDIOVASCULAR SYSTEM: PMI not localized. S1, S2. No additional sounds. ABDOMEN: Normoactive bowel sounds. No tenderness. No organomegaly. No masses. EXTREMITIES: No cyanosis. No clubbing. No edema. CENTRAL NERVOUS SYSTEM: The patient is awake, on ventilator. ASSESSMENT: Respiratory failure, likely aspiration secondary to aspiration pneumonia. PLAN: Continue ventilator management. Follow Pulmonary recommendations. Continue current IV antibiotics, both metronidazole as well as cefepime. Continue DVT prophylaxis as well as the patient's antiseizure medications and thyroid medications. Jolene Drake MD
--- NOTE | 2017-01-05 14:47 | CP.PCM.CON ---
History of Present Illness - History of Present Illness History of Present Illness: reason for consultation: respiratory failure requiring intubation 81 year old female with PMHx off seizure disorders, hypothyroidism was transferred from [facility] after she got intubated for choking/cyanosis. Patient was suctioned, but became hypoxic and brought to ED. Patient intubated. At baseline, patient is nonverbal and wheelchair bound. Patient cannot follow commands. Patient has been living in a [facility] for the past 8 years and son believes she has been having more trouble with breathing recently. PMHx: Alzheimer's Dementia, HTN, stroke (unknown year because found incidentally as an old infarct on imaging in 2011), hypothyroidism, possible seizure history Surghx: cholecystectomy (2001), peg tube (2013) Social: 8 years ago moved into a [facility], currently at [place] ), no history of tobacco/alcohol/drugs Famhx: mom- throat CA, sister- stomach CA Review of Systems - Review of Systems Systems not reviewed;Unavailable: Intubated Past Patient History - Past Medical History & Family History Past Medical History?: Yes - Past Social History Smoking Status: Never Smoked - CARDIAC Hx Hypertension: Yes - PULMONARY Hx Asthma: Yes Hx Chronic Obstructive Pulmonary Disease (COPD): Yes Hx Pulmonary Embolism: Yes - NEUROLOGICAL Hx Alzheimer's Disease: Yes Hx Dementia: Yes Hx Seizures: Yes (LAST EPISODE 2 MONTHS AGO) - HEENT Hx HEENT Problems: Yes Hx Cataracts: Yes Hx Glaucoma: Yes - RENAL Hx Chronic Kidney Disease: No - ENDOCRINE/METABOLIC Hx Hypothyroidism: Yes - HEMATOLOGICAL/ONCOLOGICAL Hx Blood Disorders: No - INTEGUMENTARY Hx Dermatological Problems: No - MUSCULOSKELETAL/RHEUMATOLOGICAL Hx Arthritis: Yes - GASTROINTESTINAL Hx Gall Bladder Disease: Yes - GENITOURINARY/GYNECOLOGICAL Hx Genitourinary Disorders: Yes Hx Incontinence: Yes - PSYCHIATRIC Hx Substance Use: No - SURGICAL HISTORY Hx Cholecystectomy: Yes (15 yrs ago) - ANESTHESIA Hx Anesthesia: Yes Hx Anesthesia Reactions: No Hx Malignant Hyperthermia: No Meds Allergies/Adverse Reactions: Allergies Allergy/AdvReac Type Severity Reaction Status Date / Time No Known Allergies Allergy Verified 01/03/17 14:38 - Medications Medications: Current Medications Albuterol/Ipratropium (Duoneb 3 Mg/0.5 Mg (3 Ml) Ud) 3 ml INH RQ6 ODETTE Ascorbic Acid (Vitamin C 500 Mg Tab) 500 mg PO DAILY ODETTE Last Admin: 01/05/17 10:58 Dose: 500 mg Famotidine (Pepcid) 20 mg IVP DAILY [facility] Last Admin: 01/05/17 10:57 Dose: 20 mg Heparin Sodium (Porcine) (Heparin) 5,000 units SC Q12 [facility] Last Admin: 01/05/17 10:57 Dose: 5,000 units Metronidazole (Flagyl) 500 mg in 100 mls @ 100 mls/hr IVPB Q8H [facility] Last Admin: 01/05/17 10:59 Dose: 100 mls/hr Cefepime HCl (Maxipime Iv 1 Gm Premix) 1 gm in 50 mls @ 100 mls/hr IVPB Q12H [facility] Last Admin: 01/05/17 06:38 Dose: 100 mls/hr Insulin Human Regular (Novolin R) 0 unit SC Q6 [facility] PRN Reason: Protocol Levetiracetam (Keppra) 500 mg PO BID [facility] Last Admin: 01/05/17 11:40 Dose: 500 mg Levothyroxine Sodium (Synthroid) 100 mcg PO DAILY@0630 [facility] Last Admin: 01/05/17 06:39 Dose: 100 mcg Lorazepam (Ativan) 2 mg IVP Q4H PRN PRN Reason: Seizure activity Multivitamins/Vitamin C (Multi-Delyn Liquid) 5 ml PO DAILY [facility] Last Admin: 01/05/17 11:40 Dose: 5 ml Potassium Chloride (Potassium Chloride Oral Soln) 40 meq PO Q4H [facility] Stop: 01/05/17 16:01 Last Admin: 01/05/17 11:48 Dose: 40 meq Zinc Sulfate (Zinc Sulfate 220 Mg Cap) 220 mg PO DAILY [facility] Last Admin: 01/05/17 10:58 Dose: 220 mg Physical Exam - Head Exam Head Exam: ATRAUMATIC, NORMOCEPHALIC - ENT Exam ENT Exam: Mucous Membranes Moist - Neck Exam Neck exam: Positive for: Normal Inspection - Respiratory Exam Respiratory Exam: Decreased Breath Sounds - Cardiovascular Exam Cardiovascular Exam: REGULAR RHYTHM - GI/Abdominal Exam GI & Abdominal Exam: Normal Bowel Sounds, Soft - Extremities Exam Extremities exam: Positive for: normal inspection - Neurological Exam Neurological exam: Altered Results - Vital Signs Recent Vital Signs: Last Vital Signs Temp 98.7 F 01/05/17 04:00 Pulse 78 01/05/17 11:00 Resp 16 01/05/17 11:00 BP 133/91 H 01/05/17 09:50 Pulse Ox 100 01/05/17 11:00 - Labs Result Diagrams: 01/05/17 06:15 01/05/17 06:15 Labs: Laboratory Results - last 24 hr 01/05/17 01/05/17 01/05/17 05:23 06:15 06:15 WBC 9.1 RBC 4.22 Hgb 12.9 Hct 38.2 MCV 90.5 MCH 30.5 MCHC 33.7 RDW 13.2 Plt Count 222 MPV 11.0 Neut % (Auto) 62.3 Lymph % (Auto) 27.0 [place] % (Auto) 7.6 Eos % (Auto) 2.0 Baso % (Auto) 1.1 Neut # 5.7 Lymph # 2.5 [place] # 0.7 Eos # 0.2 Baso # 0.1 Puncture Site Rr pCO2 25 L pO2 186 H HCO3 28.0 ABG pH 7.60 H ABG Total CO2 25.3 ABG O2 Saturation 99.7 H ABG Base Excess 4.0 H ABG Hemoglobin 12.5 ABG Carboxyhemoglobin 1.3 POC ABG HHb (Measured) 0.3 ABG Methemoglobin 1.3 [place] Test Pos A-a O2 Difference 139.0 Respiratory Index 0.7 Hgb O2 Saturation 97.1 Vent Mode Prvc Mechanical Rate 16 FiO2 50.0 Tidal Volume 450 PEEP 5 Sodium 135 Potassium 2.8 L Chloride 103 Carbon Dioxide 21 L Anion Gap 14 BUN 11 Creatinine 0.5 L Est GFR ( Amer) > 60 Est GFR (Non-Af Amer) > 60 POC Glucose (mg/dL) Random Glucose 110 H Calcium 8.2 L Phosphorus 2.8 Magnesium 1.9 Total Bilirubin 0.6 AST 27 ALT 42 Alkaline Phosphatase 70 Total Protein 7.5 Albumin 3.3 L Globulin 4.2 H Albumin/Globulin Ratio 0.8 L 01/05/17 11:50 WBC RBC Hgb Hct MCV MCH MCHC RDW Plt Count MPV Neut % (Auto) Lymph % (Auto) [place] % (Auto) Eos % (Auto) Baso % (Auto) Neut # Lymph # [place] # Eos # Baso # Puncture Site pCO2 pO2 HCO3 ABG pH ABG Total CO2 ABG O2 Saturation ABG Base Excess ABG Hemoglobin ABG Carboxyhemoglobin POC ABG HHb (Measured) ABG Methemoglobin [place] Test A-a O2 Difference Respiratory Index Hgb O2 Saturation Vent Mode Mechanical Rate FiO2 Tidal Volume PEEP Sodium Potassium Chloride Carbon Dioxide Anion Gap BUN Creatinine Est GFR ( Amer) Est GFR (Non-Af Amer) POC Glucose (mg/dL) 158 H Random Glucose Calcium Phosphorus Magnesium Total Bilirubin AST ALT Alkaline Phosphatase Total Protein Albumin Globulin Albumin/Globulin Ratio Assessment & Plan (1) Acute respiratory failure with hypoxia Status: Acute Comment: continue ventilatory support and wean as tolerated (2) Aspiration pneumonia Assessment and Plan: continue antibiotics and followup chest x-ray and culture and sensitivity Status: Acute (3) Respiratory arrest Status: Acute
--- NOTE | 2017-01-05 15:38 | PN ---
DAILY PROGRESS NOTE DATE: 01/05/2017 SUBJECTIVE: The patient is seen today 01/05/2017, and the patient is still on the ventilator. PHYSICAL EXAMINATION: VITAL SIGNS: Blood pressure 169/79, temperature 97.8, respiratory rate 20 and pulse 82. CHEST AND LUNGS: Bilateral symmetrical expansion. Good air exchange. Few basal rales. CARDIOVASCULAR SYSTEM: PMI not localized. S1, S2. No additional sounds. ABDOMEN: Decreased bowel sounds. No organomegaly. No masses. EXTREMITIES: No cyanosis. No clubbing. No edema. WEB PRESS ROLL TENDER: The patient is arousable on ventilator. ASSESSMENT: 1. Bilateral pneumonia, health-care related/aspiration. 2. Hypothyroidism. 3. Seizure disorder. PLAN: Continue current IV antibiotics and follow recommendations of catalyst impregnator as well as continue DVT prophylaxis and antiseizure and thyroid medications. [facility] MD Vidal
[2017-01-05] MEDS: Albuterol-Ipratrop 3 mg / 0.5 (3 ml) UD INH SCH (19:44)
[2017-01-06] MEDS: Albuterol-Ipratrop 3 mg / 0.5 (3 ml) UD INH SCH ×2 (01:00→07:23)
[2017-01-06] MEDS: metroNIDAZOLE IV 500 mg/100 ml 500 MG/100 ML BAG IVPB SCH (02:00)
[2017-01-06] MEDS: Cefepime IV 1 gm in Dextrose 1 GM/50 ML BAG IVPB SCH (06:09)
[2017-01-06] MEDS: Levothyroxine 100 MCG TAB PO SCH (06:10)
[2017-01-06] MEDS: (Novolin R) Insulin Human Regular 100 units/ml vial SC SCH (06:16)
[2017-01-06] MEDS ORDERED: Morphine Sulfate 250 MG in Dextrose 5% In Water 240 ML IV ONE (09:41)
--- NOTE | 2017-01-06 10:37 | CP.PCM.PN ---
Subjective - Date & Time of Evaluation Date of Evaluation: 01/06/17 Time of Evaluation: 07:00 - Subjective Subjective: Unresponsive and non verbal Objective - Vital Signs/Intake and Output Vital Signs (last 24 hours): Temp Pulse Resp BP Pulse Ox 98.1 F 83 16 150/96 H 100 01/06/17 08:00 01/06/17 09:05 01/06/17 09:05 01/06/17 09:05 01/06/17 09:05 Intake and Output: 01/06/17 01/06/17 06:59 18:59 Intake Total 640 120 Output Total 500 Balance 140 120 - Medications Medications: Current Medications Morphine Sulfate 250 mg/ (Dextrose) 250 mls @ 2 mls/hr IV .Q24H ONE PRN Reason: Protocol Stop: 01/07/17 09:40 Lorazepam (Ativan) 2 mg IVP Q1H PRN PRN Reason: Agitation - Labs Labs: 01/05/17 06:15 01/05/17 06:15 PT 11.6 SECONDS (9.7-12.2) 01/03/17 14:34 INR 1.0 01/03/17 14:34 APTT 24 SECONDS (21-34) 01/03/17 14:34 - Constitutional Appears: No Acute Distress, Chronically Ill - Head Exam Head Exam: ATRAUMATIC, NORMAL INSPECTION, NORMOCEPHALIC - Eye Exam Eye Exam: Normal appearance Pupil Exam: NORMAL ACCOMODATION - ENT Exam Additional comments: ETT - Neck Exam Neck Exam: Normal Inspection - Respiratory Exam Respiratory Exam: Decreased Breath Sounds - Cardiovascular Exam Cardiovascular Exam: Tachycardia - GI/Abdominal Exam Additional comments: PEG - Rectal Exam Rectal Exam: Deferred - Extremities Exam Extremities Exam: Pedal Edema - Back Exam Back Exam: NORMAL INSPECTION - Neurological Exam Neurological Exam: Motor Sensory Deficit Neuro motor strength exam: Left Upper Extremity: 0, Right Upper Extremity: 0, Left Lower Extremity: 0, Right Lower Extremity: 0 - Psychiatric Exam Psychiatric exam: Flat Affect - Skin Skin Exam: Pallor, Warm Assessment and Plan - Assessment and Plan (Free Text) Assessment: Patient remains unresponsive to stimuli on full life support. The CXR from yesterday was significant for bi apical pleural thickening and granulomatous changes. UTI was diagnosed as well. Doctor Carrington , the pairer discussed poor prognosis with patient's three sons, last night. I was told that family had decided on removal of life support this morning. Last night I assisted them with completing a new POLST form calling for DNR/DNi and was signed by the oldest son, in agreement with other two sons, present at bed side. I reviewed again Doctor Carrington's impression of poor prognosis and made sure the family understood it. I also emphisized that is expected once the life support was removed and they stated understanding and agreement. This morning, the whole family was there. The process of removing the MV support has begun. I offered my support. Impression * Patient is chronically ill in acute respiratory distress * Family wishes for comfort measures only and agreed with removal of life support * Family understands that it may result in Suggestions * Promote natural with attention to providing comfort
--- NOTE | 2017-01-06 14:38 | CP.CCUPN ---
<Charlotte Lyon - Last Filed: 01/06/17 14:35> CCU Subjective - Physician Review Subjective (Free Text): Patient seen and examined at bedside. Patient nonverbal at baseline. ROS unobtainable. 01/06/17 14:47 CCU Objective - Vital Signs / Intake & Output Vital Signs (Last 4 hours): Vital Signs Temp Pulse Resp BP Pulse Ox 01/06/17 13:00 78 10 L 100 01/06/17 12:00 98.7 F 83 14 97 01/06/17 11:20 74 16 189/74 H 100 01/06/17 11:18 76 16 182/75 H 100 01/06/17 11:04 82 16 191/78 H 100 01/06/17 11:00 90 13 83 L 01/06/17 10:48 75 13 100 Intake and Output (Last 8hrs): Intake & Output 01/05/17 01/06/17 01/06/17 22:59 06:59 14:59 Intake Total 500 480 157 Output Total 225 275 Balance 275 205 157 Intake: IV 7 Intake, IV Amount 100 200 30 Right Hand 100 200 30 Oral 0 Tube Feeding 320 280 120 Other 80 Output: Urine 225 275 Urine, Voided 225 275 Stool 0 Other: # Bowel Movements 0 1 - Physical Exam Head: Positive for: Atraumatic, Normocephalic Extroacular Muscles: Positive for: EOMI Conjunctiva: Positive for: Injected Mouth: Positive for: Moist Mucous Membranes Respiratory/Chest: Positive for: Decreased Breath Sounds, Rhonchi Cardiovascular: Positive for: Normal S1, S2 Abdomen: Positive for: Other (PEG in place). Negative for: Tenderness Upper Extremity: Positive for: Other (contracted bilaterally ) Lower Extremity: Negative for: Edema Skin: Positive for: Warm, Normal Color Psychiatric: Negative for: Alert, Oriented x 3 - Medications Active Medications: Active Medications Generic Name Dose Route Start Last Admin Trade Name Freq PRN Reason Stop Dose Admin Morphine Sulfate 250 mg/ 250 mls @ 2 mls/hr 01/06/17 09:41 01/06/17 11:00 Dextrose IV 01/07/17 09:40 10 mg/hr .Q24H ONE 10 mls/hr Protocol Titration Lorazepam 2 mg 01/06/17 09:43 01/06/17 10:33 Ativan IVP 2 mg Q1H PRN Administration Agitation - Patient Studies Lab Studies: Microbiology Studies 01/03/17 14:55 Blood Culture - Preliminary Blood NO GROWTH AFTER 48 HOURS 01/03/17 14:25 Blood Culture - Preliminary Blood NO GROWTH AFTER 48 HOURS 01/03/17 15:55 Urine Culture - Final Urine,Hutchins Enterococcus Faecalis Lab Studies 01/06/17 01/05/17 01/05/17 Range/Units 05:06 23:51 17:49 POC Glucose (mg/dL) 102 173 H 120 H (65-110) mg/dL Laboratory Results - last 24 hr 01/05/17 01/05/17 01/06/17 17:49 23:51 05:06 POC Glucose (mg/dL) 120 H 173 H 102 Fingerstick Blood Sugar Results: 107 Review of Systems - Review of Systems Systems not reviewed;Unavailable: Dementia - Constitutional Constitutional: Weakness Critical Care Progress Note - Nutrition Nutrition: Nutrition Category Date Time Status NPO Diet [DIET] Diets 01/03/17 Dinner Active Assessment/Plan - Assessment and Plan (Free Text) Assessment: Patient is a Patient is an 81 year old female with PMHx of Alzheimer's Dementia , HTN, stroke, hypothyroidism admitted for respiratory failure, intubated, after an episode of choking in the shelter. Patient terminally extubated on 01/06/17. Family wishes for comfort measures only. Family understands that this may result in . Continue to promote natural and provide comfort care. <Donta Shultz - Last Filed: 01/06/17 15:13> CCU Subjective - Physician Review Critical Care Time Spent (in minutes): 35 CCU Objective - Vital Signs / Intake & Output Vital Signs (Last 4 hours): Vital Signs Temp Pulse Resp BP Pulse Ox 01/06/17 14:00 84 8 L 98 01/06/17 13:00 78 10 L 100 01/06/17 12:00 98.7 F 83 14 97 01/06/17 11:20 74 16 189/74 H 100 01/06/17 11:18 76 16 182/75 H 100 Intake and Output (Last 8hrs): Intake & Output 01/06/17 01/06/17 01/06/17 06:59 14:59 22:59 Intake Total 480 167 Output Total 275 Balance 205 167 Intake: IV 7 Intake, IV Amount 200 40 Right Hand 200 40 Oral 0 Tube Feeding 280 120 Output: Urine 275 Urine, Voided 275 Other: # Bowel Movements 1 - Medications Active Medications: Active Medications Generic Name Dose Route Start Last Admin Trade Name Song PRN Reason Stop Dose Admin Morphine Sulfate 250 mg/ 250 mls @ 2 mls/hr 01/06/17 09:41 01/06/17 11:00 Dextrose IV 01/07/17 09:40 10 mg/hr .Q24H ONE 10 mls/hr Protocol Titration Lorazepam 2 mg 01/06/17 09:43 01/06/17 10:33 Ativan IVP 2 mg Q1H PRN Administration Agitation - Patient Studies Lab Studies: Microbiology Studies 01/03/17 14:55 Blood Culture - Preliminary Blood NO GROWTH AFTER 48 HOURS 01/03/17 14:25 Blood Culture - Preliminary Blood NO GROWTH AFTER 48 HOURS 01/03/17 15:55 Urine Culture - Final Urine,Hutchins Enterococcus Faecalis Lab Studies 01/06/17 01/05/17 01/05/17 Range/Units 05:06 23:51 17:49 POC Glucose (mg/dL) 102 173 H 120 H (65-110) mg/dL Laboratory Results - last 24 hr 01/05/17 01/05/17 01/06/17 17:49 23:51 05:06 POC Glucose (mg/dL) 120 H 173 H 102 Critical Care Progress Note - Nutrition Nutrition: Nutrition Category Date Time Status NPO Diet [DIET] Diets 01/03/17 Dinner Active Assessment/Plan - Assessment and Plan (Free Text) Assessment: PAtient's family at bedside. Patient's family (2 sons) aware of patient's clinical status with severe anoxic brain injury. Patient is not communicative, not responding to noxious stimuli. I have spent more than 35 minutes managing patient coordinating care with Palliative, family and son (3). I had a very long discussion with sons. I have discussed at length with the family, their request for the withdrawal of life- sustaining treatment and I agree with their decision. As per sons, patient did not wish to live on a ventilator. The discussion had all the details of a conversation to obtain an informed refusal to treatment, including but not limited to, disclosure of the alternatives to the withdrawal of life sustaining treatment, and the risks and benefits to the patient, there by permitting the family to make an informed decision. At the health care agent's/family's request and in accordance with patient's wishes, life sustaining treatment will be withdrawn. The patient's family understands that in all probability, the patient will after terminal extubation.
--- NOTE | 2017-01-06 14:41 | CP.PCM.PN ---
Subjective - Date & Time of Evaluation Date of Evaluation: 01/06/17 Time of Evaluation: 10:00 - Subjective Subjective: patient seen and examined. Remains intubated on ventilatory support Not tolerating weaning Afebrile Tolerating feeding DNR/DNI Objective - Vital Signs/Intake and Output Vital Signs (last 24 hours): Temp Pulse Resp BP Pulse Ox 98.7 F 78 10 L 189/74 H 100 01/06/17 12:00 01/06/17 13:00 01/06/17 13:00 01/06/17 11:20 01/06/17 13:00 Intake and Output: 01/06/17 01/06/17 06:59 18:59 Intake Total 640 157 Output Total 500 Balance 140 157 - Medications Medications: Current Medications Morphine Sulfate 250 mg/ (Dextrose) 250 mls @ 2 mls/hr IV .Q24H ONE PRN Reason: Protocol Stop: 01/07/17 09:40 Last Titration: 01/06/17 11:00 Dose: 10 mg/hr, 10 mls/hr Lorazepam (Ativan) 2 mg IVP Q1H PRN PRN Reason: Agitation Last Admin: 01/06/17 10:33 Dose: 2 mg - Labs Labs: 01/05/17 06:15 01/05/17 06:15 PT 11.6 SECONDS (9.7-12.2) 01/03/17 14:34 INR 1.0 01/03/17 14:34 APTT 24 SECONDS (21-34) 01/03/17 14:34 - Head Exam Head Exam: ATRAUMATIC, NORMOCEPHALIC - ENT Exam ENT Exam: Mucous Membranes Moist - Respiratory Exam Respiratory Exam: Clear to Ausculation Bilateral - Cardiovascular Exam Cardiovascular Exam: REGULAR RHYTHM - GI/Abdominal Exam GI & Abdominal Exam: Soft, Normal Bowel Sounds - Extremities Exam Extremities Exam: Normal Inspection - Neurological Exam Neurological Exam: Altered Assessment and Plan (1) Acute respiratory failure with hypoxia Assessment & Plan: on ventilatory support Family requesting for terminal extubation Status: Acute (2) Aspiration pneumonia Status: Acute (3) Respiratory arrest Status: Acute
[2017-01-07] MEDS ORDERED: Morphine Sulfate 250 MG in Dextrose 5% In Water 240 ML IV ONE (12:07)
--- NOTE | 2017-01-09 09:39 | PN ---
DATE: 01/07/2017 SUBJECTIVE: The patient is seen today, 01/07/2017. She is sedated on morphine drip. Her family requested to start gastric tube feeding. Her son at the bedside. PHYSICAL EXAMINATION: VITAL SIGNS: Blood pressure is 115/71, temperature 97.8, respiratory rate 18 and pulse 102. NECK: No JVD. No carotid bruit. No lymph node. No thyromegaly. CHEST AND LUNGS: Bilateral symmetrical expansion. Good air exchange. No rales. No rhonchi. CARDIOVASCULAR: PMI not localized. S1 and S2. No additional sounds. ABDOMEN: Gastric tube feeding in place. EXTREMITIES: No cyanosis, no clubbing. CENTRAL NERVOUS SYSTEM: The patient is sedated on morphine drip. ASSESSMENT: 1. Status post respiratory failure and terminal extubation. Currently, the patient is do not resuscitate. 2. Seizure disorder. 3. Hypothyroidism. PLAN: Continue current medications and management, and we will stop the morphine drip and give the patient morphine as needed. As per family request, we will resume gastric tube feeding. Jolene Drake MD
[2017-01-09 11:33] LABS: MONO % 3.5 % (0.0-10.0)
[2017-01-09 11:47] LABS: BASO # 0.1 K/uL (0.0-0.2); BASO % 0.3 % (0.0-2.0); HEMATOCRIT 41.3 % (34.0-47.0); LYMPH # 1.3 K/uL (1.0-4.3); LYMPH % 3.7 % (20.0-40.0); MEAN CORPUSCULAR HEMOGLOBIN 30.5 pg (27.0-31.0); MEAN CORPUSCULAR HGB CONC 32.7 g/dL (33.0-37.0); MEAN PLATELET VOLUME 10.7 fL (7.2-11.7); MONO # 1.3 K/uL (0.0-0.8); PLATELET COUNT 262 K/uL (130-400); RED CELL DISTRIBUTION WIDTH 13.5 % (11.5-14.5)
[2017-01-09 11:48] LABS: WHITE BLOOD COUNT 35.8 K/uL (4.8-10.8)
[2017-01-09 11:49] LABS: MEAN CELL VOLUME 93.3 fL (81.0-99.0)
[2017-01-09 12:03] LABS: ALB/GLOB RATIO 0.8 (1.0-2.1); BILIRUBIN,TOTAL 0.8 mg/dL (0.2-1.3); CALCIUM 8.9 mg/dl (8.6-10.4); POTASSIUM 5.3 mmol/L (3.6-5.2); TOTAL PROTEIN 7.2 g/dL (6.3-8.3)
[2017-01-09 12:04] LABS: NEUTROPHIL 95 % (50-75); TOTAL CELLS COUNTED 100
[2017-01-09 12:05] LABS: LARGE PLATELETS PRESENT
[2017-01-10] MEDS ORDERED: Acetaminophen 650mg/20.3ml solution UD PEG STA (04:38)
[2017-01-10 08:26] VITALS: BP 179/84; PULSE 109; RESP 18; TEMP 98.3; O2SAT 97
[2017-01-10] MEDS ORDERED: levETIRAcetam 100 mg/ml (5ml) Oral Syringe PO SCH (10:00)
[2017-01-11] MEDS ORDERED: Levothyroxine 100 MCG TAB PO SCH (06:30)
--- NOTE | 2017-01-11 07:57 | DS ---
REASON FOR ADMISSION: This is an 81-year-old female who is a senior care resident, was admitted for respiratory failure, likely aspiration pneumonia. COURSE OF HOSPITALIZATION: The patient was initially admitted to intensive care unit. The patient had terminal extubation as per her children. The patient was DNR and DNI. The patient was transferred from intensive care unit to the floor. The patient did not show any signs of improvement, and she continued to be only responsive to verbal stimuli by opening eyes. The patient had gastric tube feeding through G-tube. The patient was discharged to hospice care for further management. FINAL DIAGNOSES: Respiratory failure, aspiration pneumonia, cerebrovascular accident, seizure disorder, hypothyroidism. [facility] MD Vidal
--- NOTE | 2017-01-11 08:42 | PN ---
DATE: 01/10/2017 SUBJECTIVE: She is not in any cardiopulmonary distress. PHYSICAL EXAMINATION: VITAL SIGNS: Blood pressure 179/84, temperature 98.3, respiratory rate 18, and pulse 109. HEENT: The patient opens her eyes and normal-appearing mucosa of the conjunctivae. NECK: No JVD. No carotid bruit. No lymph node. No thyromegaly. CHEST AND LUNGS: Decreased air entry both lower lung oliveira. CARDIOVASCULAR SYSTEM: PMI not localized. S1 and S2. No additional sounds. ABDOMEN: Normal active bowel sounds. No tenderness. No organomegaly. No masses. EXTREMITIES: No cyanosis. No clubbing. No edema. CENTRAL NERVOUS SYSTEM: The patient opens her eyes, but she does not follow commands or respond to verbal stimuli. ASSESSMENT: 1. Status post terminal extubation after respiratory failure. 2. Hypothyroidism. 3. Seizure disorder. PLAN: Palliative care and we will discuss hospice with the patient's family and continue antiseizure and thyroid medications for now. Morphine as needed to keep the patient comfortable. [facility] MD Vidal
== END 2017-01-10 15:04 | disposition hospice, inpatient (51) | DRG 208 ==
LOC: C.ER 14:15 → C.9I 15:44 → C.6T 01-07 10:31
PROVIDERS: ADMIT Internal Medicine; ATTEND Internal Medicine
PROC: 0BH17EZ Insertion of Endotracheal Airway into Trachea, Via Natural or Artificial Opening (ICD-10-PCS; principal; 2017-01-03)
PROC: 5A1945Z Respiratory Ventilation, 24-96 Consecutive Hours (ICD-10-PCS; 2017-01-03)
DX: J96.01 Acute respiratory failure with hypoxia (principal); J69.0 Pneumonitis due to inhalation of food and vomit; I63.9 Cerebral infarction, unspecified; G93.1 Anoxic brain damage, not elsewhere classified; N39.0 Urinary tract infection, site not specified; G30.9 Alzheimer's disease, unspecified; F02.80 Dementia in other diseases classified elsewhere, unspecified severity, without behavioral disturbance, psychotic disturbance, mood disturbance, and anxiety; Z66 Do not resuscitate; G40.909 Epilepsy, unspecified, not intractable, without status epilepticus; E03.9 Hypothyroidism, unspecified; Z86.73 Personal history of transient ischemic attack (TIA), and cerebral infarction without residual deficits; I10 Essential (primary) hypertension; J44.9 Chronic obstructive pulmonary disease, unspecified; M19.90 Unspecified osteoarthritis, unspecified site; Z86.711 Personal history of pulmonary embolism; H40.9 Unspecified glaucoma; Z51.5 Encounter for palliative care; Z90.49 Acquired absence of other specified parts of digestive tract; Z93.1 Gastrostomy status; Z99.3 Dependence on wheelchair

== ENCOUNTER 2017-01-10 14:51 | Inpatient (IN) | payer OTHER ==
[2017-01-10] MEDS ORDERED: Acetaminophen 650mg/20.3ml solution UD PEG PRN (20:00)
[2017-01-10] MEDS: levETIRAcetam 100 mg/ml (5ml) Oral Syringe PO SCH (20:19)
[2017-01-11] MEDS: Levothyroxine 100 MCG TAB PO SCH (06:08)
--- NOTE | 2017-01-11 08:41 | PN ---
DATE: 01/09/2017 SUBJECTIVE: The patient was seen on 01/09/2017. PHYSICAL EXAMINATION GENERAL: She was not in any cardiopulmonary distress. VITAL SIGNS: Blood pressure 176/84, temperature 98.9, respiratory rate 24, and pulse 120. HEENT: Normal-appearing mucosa of the conjunctivae. NECK: Supple. No JVD. No carotid bruit. No lymph node. No thyromegaly. CHEST AND LUNGS: Decreased air entry of both lower lung oliveira. CARDIOVASCULAR: PMI not localized. S1 and S2. No additional sounds. ABDOMEN: Normoactive bowel sounds. gastric tube is in place. EXTREMITIES: No cyanosis. No clubbing. No edema. CENTRAL NERVOUS SYSTEM: The patient opens her eyes, but she is not following commands or responding to verbal stimuli. ASSESSMENT AND PLAN: Status post respiratory failure and terminal extubation. Currently, the patient is do not resuscitate and do not intubate. We will follow family recommendations. Further recommendations regarding palliative and hospice care. Continue current medications and feeding as per family recommendations also. Jolene Drake MD
[2017-01-11] MEDS: levETIRAcetam 100 mg/ml (5ml) Oral Syringe PO SCH ×2 (10:24→18:47)
[2017-01-12] MEDS: Levothyroxine 100 MCG TAB PO SCH (06:03)
[2017-01-12] MEDS: levETIRAcetam 100 mg/ml (5ml) Oral Syringe PO SCH ×2 (09:39→18:55)
--- NOTE | 2017-01-12 14:02 | PN ---
DATE: 01/12/2017 SUBJECTIVE: The patient is seen today on 01/12/2017. There is no change in overall clinical status. PHYSICAL EXAMINATION VITAL SIGNS: Afebrile, temperature 98.9, respiratory rate 17, pulse 100 and blood pressure 108/73. NECK: Supple. No JVD. No carotid bruit. No lymph node. No thyromegaly. CHEST AND LUNGS: Bilateral symmetrical expansion. Good air exchange. No rales, no rhonchi. CARDIOVASCULAR: PMI not localized. S1 and S2. No additional sounds. ABDOMEN: Normoactive bowel sounds. Gastric tube feeding in place. EXTREMITIES: No cyanosis, no clubbing, no edema. HORSE RIDING COACH OR INSTRUCTOR: The patient is only opening her eyes, but there is no further movement. ASSESSMENT: History of cerebrovascular accidents with gastric tube feeding, dementia, seizure disorder, hypothyroidism. PLAN: Continue comforting care, pain management and continue gastric tube feeding as per family request and continue hospice care and follow up any further recommendation for palliative care. oJlene Drake MD
--- NOTE | 2017-01-12 14:44 | HP ---
DATE: 01/11/2017 Late entry for history and physical for hospice admission. HISTORY OF PRESENT ILLNESS: This is an 81-year-old female with history of multiple CVAs. The patient is a residential resident with gastric tube feeding. The patient was in the hospital for respiratory failure secondary to possible aspiration. The patient had external extubation and she was being treated palliatively. The patient was discharge from acute hospital care to hospice after family has signed DNR/DNI as well as chose palliative care. The patient is aphasic and there is no further history that could be taken from the patient. MEDICATIONS: As per MAR. ALLERGIES: NO KNOWN ALLERGY. PAST MEDICAL HISTORY: Multiple CVAs, gastric tube feeding, seizure disorder, hypothyroidism. SOCIAL HISTORY: The patient is a residential resident for many years. FAMILY HISTORY: Noncontributory. PHYSICAL EXAMINATION: GENERAL: The patient is in bed, not in any cardiopulmonary distress. VITAL SIGNS: Blood pressure 152/81, temperature 98.8, respiratory rate 20 and pulse 100. HEENT: Pupils equal, reactive to light. Normal-appearing mucosa of the conjunctivae. NECK: Supple. No JVD. No carotid bruit. No lymph node. No thyromegaly. CHEST AND LUNGS: Bilateral symmetrical expansion. Good air exchange. No rales, no rhonchi. CARDIOVASCULAR: PMI not localized. S1 and S2. No additional sounds. ABDOMEN: Normoactive bowel sounds. Gastric tube feeding in place and the patient was started on feeding as per family's request. EXTREMITIES: No cyanosis, no clubbing, no edema. CENTRAL NERVE SYSTEM: The patient is awake, and she is not responsive to verbal stimuli except by some eye blinking. ASSESSMENT: Multiple history of cerebrovascular accident, gastric tube feeding, seizure disorder, hypothyroidism, status post respiratory failure and terminal extubation as per family request. PLAN: Continue comforting care and family decided to continue feeding with hospice care though the patient is DNR and DNI. Continue pain management with morphine as needed. Jolene Drake MD
[2017-01-13] MEDS: Levothyroxine 100 MCG TAB PO SCH (06:24)
[2017-01-13] MEDS: levETIRAcetam 100 mg/ml (5ml) Oral Syringe PO SCH (09:27)
--- NOTE | 2017-01-13 14:50 | CP.PCM.PN ---
Subjective - Date & Time of Evaluation Date of Evaluation: 01/13/17 Time of Evaluation: 14:15 - Subjective Subjective: DISCUSSED PT'S CASE AT LENGTH WITH CASE MANAGEMENT EMI. ON MONDAY (01/11) IS WAS DISCUSSED BY CM THAT [facility] WILL D/C PT FROM HOSPICE, PT'S FAMILY WANTS HER TO CONITNUE PEG FEEDINGS AT [facility]. THIS WAS NEVER DONE. PT STILL CONTINUING PEG FEEDINGS. THROAT CUTTER DISCUSSED WITH DR. YAÑEZ AND HUNTER TO [facility] OF 01/11/[address] UNDER INPATIENT REGULAR ADMISSION OF . PT WILL BE D/C TODAY TO [facility] UNDER DR. YAÑEZ'S SERVICE. THROAT CUTTER CALLED ADMITTING DEPARTMENT TO INQUIRE THE PROPER WAY TO PLACE THESE CHANGE IN STATUS ORDERS AND SPOKE Maria LARIOS FROM ADMITTING; SHE IS UNSURE ABOUT THIS PROCEDURE AND WILL CALL ME BACK. Objective - Vital Signs/Intake and Output Vital Signs (last 24 hours): Temp Pulse Resp BP Pulse Ox 96.7 F L 101 H 20 115/82 94 L 01/13/17 08:00 01/13/17 08:00 01/13/17 08:00 01/13/17 08:00 01/13/17 08:00 Intake and Output: 01/13/17 01/13/17 06:59 18:59 Intake Total 320 Output Total 600 Balance -280 - Medications Medications: Current Medications Acetaminophen (Tylenol 650mg/20.3ml Solution Ud) 650 mg PEG Q6 PRN PRN Reason: Fever >100.4 F Last Admin: 01/12/17 06:03 Dose: 650 mg Levetiracetam (Keppra) 500 mg PO BID [facility] Last Admin: 01/13/17 09:27 Dose: 500 mg Levothyroxine Sodium (Synthroid) 100 mcg PO DAILY@0630 [facility] Last Admin: 01/13/17 06:24 Dose: 100 mcg Morphine Sulfate (Morphine) 1 mg IVP Q2 PRN PRN Reason: Pain, moderate (4-7) Last Admin: 01/12/17 17:29 Dose: 1 mg Scopolamine (Transderm-Scop) 1 patch TD Q3D [facility] Last Admin: 01/10/17 17:30 Dose: 1 patch
[2017-01-13 15:59] VITALS: BP 106/73; PULSE 113; RESP 18; TEMP 98.2; O2SAT 95
--- NOTE | 2017-01-15 15:19 | DS ---
REASON FOR ADMISSION: This is an 81-year-old female with history of multiple medical problems status post respiratory failure, was admitted to hospice care on 01/10/2017. COURSE OF HOSPITALIZATION: The patient was started on comforting measures. Family requested to start feeding. The patient was rejected by hospice due to the resumption of the feeding and the patient will be admitted back to senior living. The patient was DNR/DNI and DNT at the time of this discharge. FINAL DIAGNOSES: Status post respiratory failure secondary to outpatient pneumonia, seizure disorder, hypothyroidism, dementia, gastric tube feeding status post multiple CVAs. [facility] MD
== END 2017-01-11 19:00 | disposition short-term general hospital (02) | DRG 951 ==
LOC: C.6T 14:51 → UNDODISIN 01-13 19:44
PROVIDERS: ADMIT Internal Medicine; ATTEND Internal Medicine
DX: Z51.5 Encounter for palliative care (principal); J96.90 Respiratory failure, unspecified, unspecified whether with hypoxia or hypercapnia; J69.0 Pneumonitis due to inhalation of food and vomit; Z66 Do not resuscitate; G40.909 Epilepsy, unspecified, not intractable, without status epilepticus; F03.90 Unspecified dementia, unspecified severity, without behavioral disturbance, psychotic disturbance, mood disturbance, and anxiety; E03.9 Hypothyroidism, unspecified; Z93.1 Gastrostomy status; I69.320 Aphasia following cerebral infarction

== ENCOUNTER 2017-01-11 14:00 | Inpatient (IN) | payer MEDICARE ==
--- NOTE | 2017-01-13 17:31 | CP.PCM.PN ---
Subjective - Date & Time of Evaluation Date of Evaluation: 01/13/17 Time of Evaluation: 17:31 - Subjective Subjective: PT DISCHARGED FROM [facility] A HOSPICE PATIENT AND READMITTED TO REGULAR BED PER DR. YAÑEZ AND FAMILY'S REQUEST. SHE WILL CONTINUE PEG FEEDINGS PER SON REQUEST. D/C TO [facility] TODAY PER DR. YAÑEZ AND HE WILL FOLLOW THE PT THERE. SW TO ARRANGE TRANSPORTATION TO [facility]. NO FURTHER ORDERS.
[2017-01-13 19:50] VITALS: RESP 22; O2SAT 100
== END 2017-01-13 17:24 | DRG 192 ==
LOC: UNDOADMIN 14:00 → C.6T 14:00 → UNDODISIN 01-13 19:40
PROVIDERS: ADMIT Internal Medicine; ATTEND Internal Medicine
DX: J44.9 Chronic obstructive pulmonary disease, unspecified (principal)

== ENCOUNTER 2017-11-28 13:37 | Observation (INO) | payer MEDICARE, MEDICAID ==
[2017-11-28] MEDS ORDERED: metroNIDAZOLE IV 500 mg/100 ml 500 MG/100 ML BAG IVPB STA (16:09)
[2017-11-28] MEDS ORDERED: Sodium Chloride 0.9% 1,000 ML IV SCH (16:15)
[2017-11-28 16:46] LABS: MEAN CELL VOLUME 92.3 fL (81.0-99.0); MEAN CORPUSCULAR HEMOGLOBIN 31.2 pg (27.0-31.0); MEAN CORPUSCULAR HGB CONC 33.9 g/dL (33.0-37.0); MEAN PLATELET VOLUME 10.8 fL (7.2-11.7); RBC 4.95 Mil/uL (3.80-5.20); RED CELL DISTRIBUTION WIDTH 13.1 % (11.5-14.5)
[2017-11-28 16:47] LABS: HEMOGLOBIN 15.5 g/dL (11.0-16.0); WHITE BLOOD COUNT 6.6 K/uL (4.8-10.8)
[2017-11-28 16:57] LABS: BLOOD UREA NITROGEN 23 mg/dL (7-17); GFR NON-AFRICAN AMERICAN > 60
[2017-11-28 16:58] LABS: INR 1.1; PROTHROMBIN TIME 12.3 SECONDS (9.7-12.2)
[2017-11-28] MEDS ORDERED: metroNIDAZOLE IV 500 mg/100 ml 500 MG/100 ML BAG ONE (17:07)
[2017-11-28] MEDS ORDERED: Sodium Chloride 0.9% 1,000 ML ONE (17:07)
--- NOTE | 2017-11-28 17:21 | C.PDOC ---
History Of Present Illness 82 year old female was brought into the ED for evaluation of a cracked and leaking g-tube. The patient currently lives in a intermediate, g-tube was inserted a few years ago, and intermediate was not able to feed the patient through the g-tube due to the cracks and leaks. History limited due to patient's medical condition. Time Seen by Provider: 11/28/17 13:48 Chief Complaint (Nursing): Abdominal Pain History Per: Patient History/Exam Limitations: no limitations Onset/Duration Of Symptoms: Hrs Current Symptoms Are (Timing): Still Present Past Medical History Reviewed: Historical Data, Nursing Documentation, Vital Signs Vital Signs: Last Vital Signs Temp 96.7 F L 11/28/17 13:51 Pulse 78 11/28/17 13:51 Resp 12 11/28/17 13:51 BP 140/72 11/28/17 13:51 Pulse Ox 100 11/28/17 13:51 - Medical History PMH: Alzheimer's Disease, Arthritis, Asthma, COPD, Dementia, Gall Bladder Disease, HTN, Hypothyroidism, Osteoporosis, Pulmonary Embolism, Seizures Denies: Chronic Kidney Disease Surgical History: Cholecystectomy - [facility] Procedures INSERTION OF ENDOTRACHEAL AIRWAY INTO TRACHEA, VIA OPENING (01/03/17) PERCUTANEOUS [ENDOSCOPIC] GASTROSTOMY [PEG] (07/08/14) RESPIRATORY VENTILATION, 24-96 CONSECUTIVE HOURS (01/03/17) Family History: States: Unknown Family Hx - Social History Hx Tobacco Use: No Hx Alcohol Use: No Hx Substance Use: No - Immunization History Hx Tetanus Toxoid Vaccination: No Hx Influenza Vaccination: No Hx Pneumococcal Vaccination: No Review Of Systems Review Of Systems: ROS cannot be obtained secondary to pt's inabilty to answer questions. Gastrointestinal: Positive for: Other (leaking and cracked g-tube. ) Physical Exam - Physical Exam Appears: Other (non-verbal. ) Skin: Normal Color, Warm, Dry Head: Atraumatic, Normacephalic Throat: Other (no infection around the stoma. ) Chest: Symmetrical, No Deformity Cardiovascular: Rhythm Regular, No Murmur Respiratory: Normal Breath Sounds, No Rales, No Rhonchi, No Wheezing, Other (no acute respiratory distress.) Gastrointestinal/Abdominal: Soft Extremity: Other (upper extremities intact. ) Gait: Steady Additional Physical Exam Comments: PE limited due to patient's medical condition. ED Course And Treatment - Laboratory Results Result Diagrams: 11/28/17 16:38 11/28/17 16:38 O2 Sat by Pulse Oximetry: 100 (RA) Pulse Ox Interpretation: Normal Medical Decision Making Medical Decision Making: Plan: --Blood sent. --Given Flagyl. Attempted to replace PEG at bedside however patient's tube does not have a balloon deflation port. Will likely need to have tube replaced in endoscopy. Progress/Update: 4:05pm: Spoke with Dr. Baumann who would like the patient to be admitted and will change tube endoscopically tomorrow. Would like basic labs and Flagyl 500mg q8h, first dose ordered. 4:21pm: Spoke with Dr. Drake who will admit patient. Disposition - Disposition Disposition: HOSPITALIZED Disposition Time: 16:21 Condition: FAIR - Clinical Impression Clinical Impression: PEG tube malfunction - Scribe Statement The provider has reviewed the documentation as recorded by the Scribe (Mary Beth Harris) Provider Attestation: All medical record entries made by the Scribe were at my direction and personally dictated by me. I have reviewed the chart and agree that the record accurately reflects my personal performance of the history, physical exam, medical decision making, and the department course for this patient. I have also personally directed, reviewed, and agree with the discharge instructions and disposition.
--- NOTE | 2017-11-28 23:10 | HP ---
HISTORY OF PRESENT ILLNESS: This is an 82-year-old female who is a retirement resident for many years, was brought to emergency room for evaluation of a cracked and leaking gastric tube. Nursing staff noticed the G-tube cracking and leaking on the day of admission and the patient was brought to the hospital for evaluation and management. The patient has dementia and aphasia, status post multiple CVA, and no history can be obtained from the patient for review of systems. ALLERGIES: NO KNOWN ALLERGIES. MEDICATIONS: Reviewed and ordered as per MAR. SOCIAL HISTORY: [facility] resident. Otherwise, no social history. FAMILY HISTORY: Unknown. PAST MEDICAL HISTORY: Seizure disorder, hypothyroidism, status post CVA. PHYSICAL EXAMINATION: GENERAL: The patient is in bed, not in any cardiopulmonary distress. VITAL SIGNS: Blood pressure 161/57, temperature 97.6, respiratory rate 12, and pulse 70. HEENT: Pupils equal, and reactive to light. Normal-appearing mucosa of the conjunctivae and oropharynx. NECK: No JVD. No carotid bruits. No lymph nodes. No thyromegaly. CHEST AND LUNGS: Bilateral symmetrical expansion. Good air exchange. No rales, no rhonchi. CARDIOVASCULAR SYSTEM: PMI not localized. S1, S2. No additional sounds. ABDOMEN: Gastric tube is in place, but it is leaking and cracked. EXTREMITIES: No cyanosis, no clubbing, no edema. TIRE WORKER: The patient is aphasic as well as she has bilateral lower extremity weakness with right side weaker than the left. ASSESSMENT: Malfunctioning gastric tube, history of seizure disorder, status post cerebrovascular accident, hypothyroidism, dementia. PLAN: GI consult for changing of the gastric tube. We will give the antiseizure medications IV and continue the patient's medications once gastric tube will be in place. Jolene Drake MD
[2017-11-29] MEDS: Sodium Chloride 0.9% 1,000 ML IV SCH ×2 (00:30→14:23)
[2017-11-29] MEDS ORDERED: Pneumococcal 23-Valent Vaccine IM ONE (10:00)
[2017-11-29] MEDS ORDERED: metroNIDAZOLE IV 500 mg/100 ml 500 MG/100 ML BAG IVPB SCH (10:00)
[2017-11-29] MEDS ORDERED: Propofol 10 mg/ml Inj (20 ML) ONE (10:50)
[2017-11-29] MEDS ORDERED: Bacitracin 500 Units/gm Oint Foilpak UD ONE (10:57)
[2017-11-29] MEDS ORDERED: Ciprofloxacin 400mg/200ml D5W 400 MG/200 ML BAG IVPB STA (11:12)
[2017-11-29 12:46] VITALS: PULSE 69; O2SAT 100
--- NOTE | 2017-11-29 16:14 | CP.PCM.PN ---
Subjective - Date & Time of Evaluation Date of Evaluation: 11/29/17 Time of Evaluation: 16:14 Objective - Vital Signs/Intake and Output Vital Signs (last 24 hours): Temp Pulse Resp BP Pulse Ox 97.8 F 69 13 153/39 H 100 11/29/17 11:33 11/29/17 11:33 11/29/17 11:33 11/29/17 11:33 11/29/17 11:33 Intake and Output: 11/29/17 11/29/17 06:59 18:59 Intake Total 600 890 Balance 600 890 - Medications Medications: Current Medications Levetiracetam 500 mg/ Dextrose 105 mls @ 420 mls/hr IVPB Q12H ODETTE Last Admin: 11/29/17 12:45 Dose: 420 mls/hr Metronidazole (Flagyl) 500 mg in 100 mls @ 100 mls/hr IVPB Q8H ODETTE; Protocol Last Admin: 11/29/17 09:38 Dose: 100 mls/hr Influenza Virus Vaccine (Fluzone Quad [id number]) 60 mcg IM .ONCE ONE Stop: 11/30/17 10:01 - Labs Labs: 11/28/17 16:38 11/28/17 16:38 PT 12.3 SECONDS (9.7-12.2) H 11/28/17 16:38 INR 1.1 11/28/17 16:38 APTT 32 SECONDS (21-34) 11/28/17 16:38 Assessment and Plan - Assessment and Plan (Free Text) Assessment: 82 year old female from [facility], PEG tube inserted by DR Baumann, tolerating feeding well. Discussed with Dr Drake, plan to discharge back to [facility] home today. No acute distress noted.
[2017-11-29 16:18] VITALS: RESP 20; TEMP 98.1
[2017-11-29 17:35] VITALS: BP 168/85
[2017-11-30] MEDS ORDERED: Influenza Vaccine 60 MCG/0.5 ML SYR (3 yr & up) IM ONE (10:00)
--- NOTE | 2017-11-30 22:06 | DS ---
REASON FOR ADMISSION: This is an 82-year-old female who is a [facility] resident, and she is bedridden, was brought because of malfunctioning gastric tube. COURSE OF HOSPITALIZATION: The patient was admitted to medical floor, and she had a GI consult done by Dr. Baumann. The patient went to endoscopy suite, and she had the gastric tube placed. The [facility] to [facility] in [facility] condition. FINAL DIAGNOSES: Malfunctioning gastric tube, type 2 diabetes mellitus, hypothyroidism. Davon MD Vidal
== END 2017-11-29 21:24 ==
LOC: C.ER 13:37 → C.9E 16:21 → C.3T 19:01
PROVIDERS: ADMIT Internal Medicine; ATTEND Internal Medicine
DX: K94.23 Gastrostomy malfunction (principal); F02.80 Dementia in other diseases classified elsewhere, unspecified severity, without behavioral disturbance, psychotic disturbance, mood disturbance, and anxiety; G30.9 Alzheimer's disease, unspecified; I10 Essential (primary) hypertension; J44.9 Chronic obstructive pulmonary disease, unspecified; M81.0 Age-related osteoporosis without current pathological fracture; Z86.711 Personal history of pulmonary embolism; G40.909 Epilepsy, unspecified, not intractable, without status epilepticus; E03.9 Hypothyroidism, unspecified; Z86.73 Personal history of transient ischemic attack (TIA), and cerebral infarction without residual deficits; K20.9 Esophagitis, unspecified; K44.9 Diaphragmatic hernia without obstruction or gangrene
CPT/HCPCS: 43246; 80048; 85027; 85610; 85730; 88300; 96365; 99284; G0378; J0744; J1940; J1953; J7030